=== PATIENT | female | born 1940 | race Caucasian/White ===

== ENCOUNTER → 2017-07-24 | Outpatient (CLI) | payer OTHER ==
--- NOTE | 2017-08-01 09:41 | CODING QUERY MEDICAL NECESSITY ---
SUPPORTING DIAGNOSIS NEEDED Christina ARAIZA, A supporting diagnosis is required for the test/procedure performed on this patient in order for us to be reimbursed by the patient's insurance. Please provide a supporting diagnosis for the following test/procedure listed below next to the test name along with your signature. *If there is no additional diagnosis for this patient that would support the following test/procedure please document that below next to the test/procedure. Test(s)/Procedure(s) that require a supporting diagnosis: * ([id number]) DXA BONE DENSITY, AXIAL DIAGNOSIS: DATE OF SERVICE: 07/24/17 Provider Signature: Date: Thank you Prashant Ramesh [facility] Information Management Once completed, please kindly fax back to [phone] For questions please call [phone]
== END | disposition home or self-care (01) ==
LOC: C.MAMM 13:48
PROVIDERS: ATTEND Physician Assistant
DX: M46.1 Sacroiliitis, not elsewhere classified (principal)

== ENCOUNTER → 2017-08-06 | Outpatient (CLI) | payer OTHER ==
[~2017-08-06] MED LIST: AGG PO; CALC-478 PO; CYAN100T PO; ESTR0.5T3 PO; FIBE1CHW8; FLAX100024 PO; FRS/40 PO; GLUCTAB7 PO; HYZ/50125 PO; LISI-461 PO; METO25TA56 PO; MULT-842; MULTCHW PO; NIAC1TAB59 PO; OMEG10007 PO; PLV75 PO; POTA-74 PO; RED1CAP5; VITA1TAB12 PO
[2017-08-06 15:37] LABS: ALBUMIN 3.3 gm/dl (3.4-5.0); ALT/SGPT 46 U/L (12-78); AST/SGOT 35 U/L (15-37); BLOOD UREA NITROGEN 25 mg/dl (7-18); CALCIUM 10.6 mg/dl (8.5-10.1); CARBON DIOXIDE 30 mmol/L (21-32); CREATININE 1.05 mg/dl (0.60-1.20); GLUCOSE 98 mg/dl (70-99); POTASSIUM 3.7 mmol/L (3.5-5.1); SODIUM 140 mmol/L (136-145)
[2017-08-06 15:39] LABS: ALKALINE PHOSPHATASE 132 U/L (45-117); PHOSPHORUS 2.5 mg/dl (2.5-4.9); TOTAL PROTEIN 7.5 gm/dl (6.4-8.2)
--- NOTE | 2017-08-12 07:10 | CODING QUERY MEDICAL NECESSITY ---
CQSUPPORTING DIAGNOSIS NEEDED A supporting diagnosis is required for the test/procedure performed on this patient in order for us to be reimbursed by the patient's insurance. Please provide a supporting diagnosis for the following test/procedure listed below next to the test name along with your signature. *If there is no additional diagnosis for this patient that would support the following test/procedure please document that below next to the test/procedure. Test(s)/Procedure(s) that require a supporting diagnosis: DOS 08/06/17 VITAMIN D TEST VITAMIN B12 TEST Provider Signature: Date: Thank you [facility] Information Management Once completed, please kindly fax back to [phone] For questions please call [phone]
== END | disposition home or self-care (01) ==
LOC: C.LAB1850 10:36
PROVIDERS: ATTEND Internal Medicine Endocrinology, Diabetes & Metabolism
DX: E34.9 Endocrine disorder, unspecified (principal); E55.9 Vitamin D deficiency, unspecified; E83.52 Hypercalcemia; E04.9 Nontoxic goiter, unspecified

== ENCOUNTER 2017-09-03 10:01 | Inpatient (IN) | payer OTHER ==
[~2017-09-03] VITALS: Ht 160 cm; Wt 97.8 kg
[2017-09-03] MEDS ORDERED: SODIUM CHLORIDE 0.9% 1000ML 1,000 ML IV SCH (10:20)
--- NOTE | 2017-09-03 10:25 | EMERGENCY ROOM VISIT NOTE ---
History Report prepared by Deya: Ekta Carlos Under the Supervision of: Dr. Jhon Chan M.D. First contact with patient: 10:06 Stated Complaint: FALL History of Present Illness The patient is a 76 year old female who presents to the Emergency Room with complaints of an episode of a fall occurring about an hour ago. The patient states she got out of bed and walked into the hallway when her "legs gave away" . An hour ago, she states her left hand was weak, and she felt like her left lip was drooping. Presently, the patient denies any weakness. Per daughter, the patient's speech seems slurred. She denies any shortness of breath, loss of consciousness or hitting her head. She reports "fullness" in her throat. The patient states she had a mini stroke this past July. She states her symptoms now are similar to when she had a mini stroke. 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 She states she had no residual deficits since the CVA. She denies any recent illness. The patient is on a blood thinner. Source of History: patient, family Onset: an hour ago Position: other (generalized) Quality: other (fall) Timing: other (episode) Associated Symptoms: + numbness, No LOC Review of Systems See HPI for pertinent positives & negatives. A total of 10 systems reviewed and were otherwise negative. Past Medical & Surgical Medical Problems: (1) CVA (cerebral vascular accident) (2) Mini stroke Old medical records were reviewed. Nurse's notes were reviewed and I agree with. Family History Patient reports no known family medical history. Social History Marital Status: Housing Status: lives with significant other Current/Historical Medications Scheduled Aspirin-Dipyridamole 25MG/200MG (Aggrenox 200MG/25MG), 1 CAP PO BID Xyjfxuk-Kgnoxorfe-Soth (Calcium & Magnesium + Zin 334-134-5 mg), 1 TAB PO DAILY Cyanocobalamin (Vitamin B-12), 100 MCG PO DAILY Estradiol (Estradiol), 0.5 MG PO QPM Fish Oil ([place]-3), 1 CAP PO DAILY Flaxseed (Linseed) (Flaxseed Oil), 1 CAP PO QPM Furosemide (Lasix), 40 MG PO DAILY Mugqbdqbuhp-Epyrmhllyvw-Wck C- (Glucosamine Chondroitin), 1 TAB PO DAILY Lisinopril (Zestril), 10 MG PO QPM Metoprolol Tartrate (Lopressor) (Lopressor), 12.5 MG PO AMPM Multiple Vitamins W/ Minerals (Centrum Silver), 1 TAB PO DAILY Niacin Ext Rel (Niaspan Ext Rel), 500 MG PO AMPM Potassium Chloride (Potassium Chloride Er), 10 MEQ PO DAILY Vitamin E (Vitamin E), 1 TAB PO DAILY Allergies Coded Allergies: Penicillins (Unverified Allergy, Severe, ANAPHYLAXIS, 09/03/17) Physical Exam Vital Signs Date Time Temp Pulse Resp B/P (MAP) Pulse Ox O2 Delivery O2 Flow Rate FiO2 09/03/17 12:23 67 21 167/81 94 Room Air 09/03/17 12:20 94 Room Air 09/03/17 11:39 64 21 164/90 96 Room Air 09/03/17 11:16 74 18 158/82 95 Room Air 09/03/17 11:00 74 20 183/82 94 Room Air 09/03/17 10:45 74 20 147/71 09/03/17 10:43 68 16 170/78 94 Room Air 09/03/17 10:33 72 20 176/92 94 Room Air 09/03/17 10:22 72 09/03/17 10:01 36.6 76 15 184/91 95 Room Air 09/03/17 10:01 36.6 76 15 184/91 95 Room Air 09/03/17 10:01 95 Room Air Physical Exam General: Non-ill appearing older female in no acute distress. Alert and oriented X 3, answers questions appropriately. HEENT: Normal cephalic atraumatic. Pupils are equal round and reactive to light. Extraocular movements are intact. Oropharynx is pink with moist mucous membranes. No swelling of the mouth lips or tongue. Neck: Supple with a midline trachea. No meningeal signs or stiffness, no JVD or bruits. No Stridor. Chest: Clear to auscultation bilaterally. No wheezes or rhonchi. No increased work of breathing. Heart: regular rate and rhythm. Abdomen: Soft nontender, nondistended without rebound guarding or rigidity. Extremities: No cyanosis clubbing or edema. No calf tenderness or assymetry Spine/Back. Non tender to palpation. No CVA tenderness Skin: Good turgor without rashes. Neurologic exam: Dysarthric speech, no word finding problems. Mild disconjugate gaze, no blurry vision. Cranial nerves two through 12 are intact. Motor and sensation are intact and symmetrical throughout. Medical Decision & Procedures ER Provider Diagnostic Interpretation: Radiology results as stated below per my review and radiologist interpretation: CT HEAD WITHOUT CONTRAST (CT) FINDINGS: There is a right lateral cerebellar infarct. There are left cerebellar lacunar infarcts. There are bilateral parietal infarcts, also likely old. There is additional infarct involving the left posterior parietal deep white matter. There is no midline shift. There is no acute hemorrhage. On image #9, there is a 9 mm right frontal extra-axial density. This likely is either artifactual, or secondary to a small meningioma There are patchy white matter hypodensities likely on a small vessel basis. There is no evidence of pathologic ventricular dilatation. There is no evidence of acute sinusitis IMPRESSION: 1. Cerebellar, and bilateral parietal infarcts. These are not felt to be acute. An MRI could be obtained in follow-up to exclude a subacute age, or to evaluate for an acute infarct which is not visible on this study 2. No evidence of acute hemorrhage 3. 9 mm extra-axial right frontal lesion versus artifact Electronically signed by: Hammad Isaac M.D. Laboratory Results 09/03/17 10:01 Red Blood Count 4.68, Mean Corpuscular Volume 100.9, Mean Corpuscular Hemoglobin 33.8, Mean Corpuscular Hemoglobin Concent 33.5, Mean Platelet Volume 9.8, Neutrophils (%) (Auto) 36.5, Lymphocytes (%) (Auto) 45.8, Monocytes (%) ( Auto) 15.5, Eosinophils (%) (Auto) 1.8, Basophils (%) (Auto) 0.4, Neutrophils # (Auto) 2.06, Lymphocytes # (Auto) 2.58, Monocytes # (Auto) 0.87, Eosinophils # ( Auto) 0.10, Basophils # (Auto) 0.02 09/03/17 10:01 Test 09/03/17 10:01 09/03/17 10:21 09/03/17 10:22 White Blood Count 5.63 K/uL (4.8-10.8) Red Blood Count 4.68 M/uL (4.2-5.4) Hemoglobin 15.8 g/dL (12.0-16.0) Hematocrit 47.2 % (37-47) Mean Corpuscular Volume 100.9 fL (80-100) Mean Corpuscular Hemoglobin 33.8 pg (25-34) Mean Corpuscular Hemoglobin Concent 33.5 g/dl (32-36) Platelet Count 277 K/uL (130-400) Mean Platelet Volume 9.8 fL (7.4-10.4) Neutrophils (%) (Auto) 36.5 % Lymphocytes (%) (Auto) 45.8 % Monocytes (%) (Auto) 15.5 % Eosinophils (%) (Auto) 1.8 % Basophils (%) (Auto) 0.4 % Neutrophils # (Auto) 2.06 K/uL (1.4-6.5) Lymphocytes # (Auto) 2.58 K/uL (1.2-3.4) Monocytes # (Auto) 0.87 K/uL (0.11-0.59) Eosinophils # (Auto) 0.10 K/uL (0-0.5) Basophils # (Auto) 0.02 K/uL (0-0.2) RDW Standard Deviation 48.8 fL (36.4-46.3) RDW Coefficient of Variation 13.3 % (11.5-14.5) Immature Granulocyte % (Auto) 0.0 % Immature Granulocyte # (Auto) 0.00 K/uL (0.00-0.02) Prothrombin Time 10.0 SECONDS (9.0-12.0) Prothromb Time International Ratio 1.0 (0.9-1.1) Activated Partial Thromboplast Time 26.8 SECONDS (21.0-31.0) Partial Thromboplastin Ratio 1.0 Anion Gap 7.0 mmol/L (3-11) Est Creatinine Clear Calc Drug Dose 59.2 ml/min Estimated GFR () 76.6 Estimated GFR (Non- 66.1 BUN/Creatinine Ratio 24.6 (10-20) Estimated Average Glucose 114 mg/dl Hemoglobin A1c 5.6 % (4.5-5.6) Calcium Level 10.4 mg/dl (8.5-10.1) Magnesium Level 2.2 mg/dl (1.8-2.4) Total Creatine Kinase 60 U/L (26-192) Creatine Kinase MB 1.3 ng/ml (0.5-3.6) Creatine Kinase MB Ratio 2.2 (0-3.0) Troponin I < 0.015 ng/ml (0-0.045) Bedside Prothrombin Time INR 1.1 (0.9-1.1) Bedside Glucose 88 mg/dl (70-90) Laboratory studies as stated above per my review. Medications Administered Medications (Trade) Dose Ordered Sig/Bryn Route Start Time Stop Time Status Last Admin Dose Admin Sodium Chloride 1,000 ml @ 50 mls/hr Q20H IV 09/03/17 10:20 09/03/17 15:30 DC 09/03/17 10:37 50 MLS/HR Clopidogrel Bisulfate (plAVix TAB) 300 mg NOW STAT PO 09/03/17 11:23 09/03/17 11:24 DC 09/03/17 11:40 300 MG Famotidine (Pepcid Tab) 20 mg NOW ONCE PO 09/03/17 11:30 09/03/17 11:31 DC 09/03/17 11:40 20 MG ECG Indication: weakness Rate (beats per minute): 69 Rhythm: normal sinus Findings: no acute ischemic change, no ectopy Comparison ECG Date: no prior available Change: EKG interpreted by me. ED Course 1008: Past medical records reviewed. The patient was evaluated in room B11B, and a complete history and physical examination were performed. 1020: Ordered Sodium Chloride 1000 ml @ 50 mls/hr IV 1030: Discussed the patient's case with Dr. LeonPotlatch Neurology. 1117: The patients symptoms are almost completely resolved. 1120: Dr. Rushing said not to give the patient tPA and to give her Plavix. He want us to admit the patient for further evaluation. 1123: Ordered Plavix Tab 300 mg PO. 1130: Ordered Pepcid Tab 20 mg PO. 1215: [facility]iscuss[facility] the patient's case [facility] The patient will be evaluated for further management. Medical Decision Differential diagnoses: CVA, TIA , intracranial hemorrhage, electrolyte or metabolic abnormality. This patient comes in as described above. She was placed initially in room B 11. She was feeling fine this morning afte but then got out of bed felt weak and fell. There was no injury. At that point, she felt weak in her left arm and leg and possibly the right as well. The weakness has since resolved. she still has some dysarthric speech which is new. She has no headache. she denies visual changes. When I have her read, she can do this without difficulty except for dysarthric speech. There are no word finding problems. Initially, I do question some possible disconjugate gaze in the right eye as well. She denies any visual symptoms with this however. Given the persistence of her symptoms, I did call a stroke alert to get the stroke team involved and expedite her care. CAT scan of her head does show several what appeared to older strokes. There is no acute hemorrhage. Her EKG does not suggest A. fib. She's had no significant electrolyte or metabolic abnormalities. She was loaded with Plavix as per Dr. Rivera's request and also given Prilosec and IV fluids. Her symptoms almost completely resolved while she was here she was feeling a lot better. I do think she needs to be admitted for further neurologic/stroke workup. I have consulted the hospitalist group to see her in the ER for these measures. Medication Reconcilliation Current Medication List: was personally reviewed by me Blood Pressure Screening Patient's blood pressure: Elevated blood pressure Blood pressure disposition: Referred to PCP (evaluated by hospitalist ) Consults Time Called: 1012 Consulting Physician: Dr. Reis Neurology Returned Call: 1030 Discussed the patient's case with Dr. Reis Neurology. Additional Consults: Time Called: 1058 Consulted Physician: Dr. Anoop JANG Returned Call: 1215 Additional Comments: Discussed the patient's case with Dr. Anoop JANG. The patient will be evaluated for further management. Impression Primary Impression: CVA (cerebral vascular accident) Additional Impression: Dysarthria Scribe Attestation The scribe's documentation has been prepared under my direction and personally reviewed by me in its entirety. I confirm that the note above accurately reflects all work, treatment, procedures, and medical decision making performed by me. Departure Information Dispostion Being Evaluated By Hospitalist Referrals Asif Vasquez PA-C (PCP) Stroke History Time Last Known Well 0900 Stroke t-PA Criteria Reviewed Does NOT meet criteria for t-PA Reason t-PA Not Given Treatment not indicated Problem Qualifiers
[2017-09-03 10:32] LABS: BASO % 0.4 %; BASO ABS # 0.02 K/uL (0-0.2); EOS % 1.8 %; HEMATOCRIT 47.2 % (37-47); HEMOGLOBIN 15.8 g/dL (12.0-16.0); LYMPH % 45.8 %; LYMPH ABS # 2.58 K/uL (1.2-3.4); MEAN CELL VOLUME 100.9 fL (80-100); MEAN CORPUSCULAR HEMOGLOBIN 33.8 pg (25-34); MEAN CORPUSCULAR HGB CONC 33.5 g/dl (32-36); MEAN PLATELET VOLUME 9.8 fL (7.4-10.4); MONO % 15.5 %; MONO ABS # 0.87 K/uL (0.11-0.59); NEUT % 36.5 %; NEUT ABS # 2.06 K/uL (1.4-6.5); PLATELET COUNT 277 K/uL (130-400); RED CELL DISTRIBUTION WIDTH CV 13.3 % (11.5-14.5); RED CELL DISTRIBUTION WIDTH SD 48.8 fL (36.4-46.3); WHITE BLOOD COUNT 5.63 K/uL (4.8-10.8)
--- NOTE | 2017-09-03 10:38 | DIAGNOSTIC IMAGING REPORT ---
CT HEAD WITHOUT CONTRAST (CT) CLINICAL HISTORY: Stroke COMPARISON STUDY: No previous studies for comparison. TECHNIQUE: Axial CT of the brain is performed from the vertex to the skull base. IV contrast was not administered for this examination. A dose lowering technique was utilized adhering to the principles of ALARA. CT DOSE: 709.48 mGy.cm FINDINGS: There is a right lateral cerebellar infarct. There are left cerebellar lacunar infarcts. There are bilateral parietal infarcts, also likely old. There is additional infarct involving the left posterior parietal deep white matter. There is no midline shift. There is no acute hemorrhage. On image #9, there is a 9 mm right frontal extra-axial density. This likely is either artifactual, or secondary to a small meningioma There are patchy white matter hypodensities likely on a small vessel basis. There is no evidence of pathologic ventricular dilatation. There is no evidence of acute sinusitis IMPRESSION: 1. Cerebellar, and bilateral parietal infarcts. These are not felt to be acute. An MRI could be obtained in follow-up to exclude a subacute age, or to evaluate for an acute infarct which is not visible on this study 2. No evidence of acute hemorrhage 3. 9 mm extra-axial right frontal lesion versus artifact Electronically signed by: Hammad Isaac M.D. 09/03/2017 10:36 AM Dictated Date/Time: 09/03/2017 10:30 AM
[2017-09-03 10:40] LABS: PTT PATIENT 26.8 SECONDS (21.0-31.0)
[2017-09-03 10:49] LABS: BLOOD UREA NITROGEN 21 mg/dl (7-18); CALCIUM 10.4 mg/dl (8.5-10.1); CARBON DIOXIDE 24 mmol/L (21-32); CREATININE 0.85 mg/dl (0.60-1.20); GLUCOSE 101 mg/dl (70-99); POTASSIUM 3.7 mmol/L (3.5-5.1); SODIUM 138 mmol/L (136-145)
[2017-09-03 10:53] LABS: CKMB 1.3 ng/ml (0.5-3.6)
[2017-09-03] MEDS ORDERED: CLOPIDOGREL BISULFATE 300 MG TAB PO STA (11:23)
[2017-09-03] MEDS ORDERED: FAMOTIDINE 20 MG TAB PO ONE (11:30)
[2017-09-03] MEDS ORDERED: FLAX100024 PO (11:53)
[2017-09-03] MEDS ORDERED: FRS/40 PO (11:53)
[2017-09-03] MEDS ORDERED: ESTR0.5T3 PO (11:53)
[2017-09-03] MEDS ORDERED: MULTCHW PO (11:53)
[2017-09-03] MEDS ORDERED: VITA1TAB12 PO (11:53)
[2017-09-03] MEDS ORDERED: GLUCTAB7 PO (11:53)
[2017-09-03] MEDS ORDERED: LISI-461 PO (11:53)
[2017-09-03] MEDS ORDERED: POTA-74 PO (11:53)
[2017-09-03] MEDS ORDERED: CALC-478 PO (11:53)
[2017-09-03] MEDS ORDERED: NIAC1TAB59 PO (11:53)
[2017-09-03] MEDS ORDERED: AGG PO (11:53)
[2017-09-03] MEDS ORDERED: METO25TA56 PO (11:53)
[2017-09-03] MEDS ORDERED: OMEG10007 PO (11:53)
[2017-09-03] MEDS ORDERED: CYAN100T PO (11:53)
[2017-09-03 12:20] VITALS: O2SAT 94; Ht 160 cm; Wt 97.8 kg
[2017-09-03] MEDS ORDERED: PHARMACIST DISCHARGE MED REC CONSULT PRN (13:00)
[2017-09-03] MEDS ORDERED: ACETAMINOPHEN 325 MG TAB PO PRN (13:00)
[2017-09-03] MEDS ORDERED: ONDANSETRON INJ 2 MG/ML 2 ML VIAL IV PRN (13:00)
[2017-09-03] MEDS ORDERED: MAGNESIUM HYDROXIDE SUSP 30 ML UDC PO PRN (13:00)
--- NOTE | 2017-09-03 13:10 | History and Physical ---
History & Physical Date & Time of Service: Sep 03, 2017 at 12:57 Chief Complaint: Fall/Weakness Primary Care Physician: Asif Vasquez PA-C History of Present Illness Source: patient, family 76 y/o F c/o stroke sx. Pt states that she fell around 9am after feeling like her legs were too weak to hold her. She felt like both legs were unable to bear weight. She was able to pull herself up along the banister and get to the bathroom where she had a large bowel movement. She was unable to use her L hand well to pick things up. She was having a hard time speaking due to inability to move her mouth well. She had no confusion during this time. She did not lose consciousness or hit her head with her fall. Prior to this, she had been having a normal night. Yesterday was a busy day for her and she had no issues going about her tasks. In the ED, pt was evaluated by tele-med with Dr. Montoya who recommended for plavix, MRA/MRI, and inpt management. She was not deemed a candidate for tpa given resolution of sx. At present, pt feels that she is still having some issues with her speech and family states that the L sided facial droop is not her baseline. Pt has had multiple strokes and TIAs in the past. Her first was 9 years ago and she has been on aggrenox since that time. She has not missed any doses of this medication recently. She saw a neurologist at that time, but is not sure who she saw other than to say it was in [place] somewhere. She does not follow with neurology. Pt had a similar episode 06/2017. This also resolved somewhat quickly. Pt states that she has also had a substantial cardiac work-up with a cardiology out of [facility]. She does not know his name. She states that she was told her heart was fine. She did have an ECHO as part of this work-up. Pt denies fever, SOB, chest pain, abd pain, n/v/c/d, LE pain or swelling. Past Medical/Surgical History Medical Problems: (1) CVA (cerebral vascular accident) Status: Resolved (2) Mini stroke Status: Resolved HTN PRN lasix use Hyperlipidemia Family History Family history was reviewed; no changes noted. Father with [place], CVA Social History Smoking Status: Never Smoker Alcohol Use: none Drug Use: none Marital Status: Allergies Coded Allergies: Penicillins (Unverified Allergy, Severe, ANAPHYLAXIS, 09/03/17) Home Medications Scheduled Aspirin-Dipyridamole 25MG/200MG (Aggrenox 200MG/25MG), 1 CAP PO BID Apklqin-Gzlrqidgz-Lkat (Calcium & Magnesium + Zin 334-134-5 mg), 1 TAB PO DAILY Cyanocobalamin (Vitamin B-12), 100 MCG PO DAILY Estradiol (Estradiol), 0.5 MG PO QPM Fish Oil ([place]-3), 1 CAP PO DAILY Flaxseed (Linseed) (Flaxseed Oil), 1 CAP PO QPM Furosemide (Lasix), 40 MG PO DAILY Dinmzaaptkw-Xwduijoynmt-Uub C- (Glucosamine Chondroitin), 1 TAB PO DAILY Lisinopril (Zestril), 10 MG PO QPM Metoprolol Tartrate (Lopressor) (Lopressor), 12.5 MG PO AMPM Multiple Vitamins W/ Minerals (Centrum Silver), 1 TAB PO DAILY Niacin Ext Rel (Niaspan Ext Rel), 500 MG PO AMPM Potassium Chloride (Potassium Chloride Er), 10 MEQ PO DAILY Vitamin E (Vitamin E), 1 TAB PO DAILY Review of Systems Pertinent positives and negatives reviewed in HPI--all others negative Physical Exam Vital Signs Date Time Temp Pulse Resp B/P (MAP) Pulse Ox O2 Delivery O2 Flow Rate FiO2 09/03/17 12:23 67 21 167/81 94 Room Air 09/03/17 11:39 64 21 164/90 96 Room Air 09/03/17 11:16 74 18 158/82 95 Room Air 09/03/17 11:00 74 20 183/82 94 Room Air 09/03/17 10:45 74 20 147/71 09/03/17 10:43 68 16 170/78 94 Room Air 09/03/17 10:33 72 20 176/92 94 Room Air 09/03/17 10:22 72 09/03/17 10:01 36.6 76 15 184/91 95 Room Air 09/03/17 10:01 36.6 76 15 184/91 95 Room Air 09/03/17 10:01 95 Room Air General Appearance: WD/WN, no apparent distress Head: normocephalic, atraumatic Eyes: normal inspection, EOMI, sclerae normal Respiratory/Chest: normal breath sounds, no respiratory distress Cardiovascular: regular rate, rhythm, no edema Abdomen/GI: non tender, soft Extremities/Musculoskelatal: no calf tenderness, no pedal edema Neurologic/Psych: alert, normal mood/affect, oriented x 3, + facial droop (L sided), + pertinent finding (5/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, L LE 4/5 on strength against resistance from the hip, 5/5 in all other planes with R LE 5/5, speech is somewhat slow and pt must take care to pronounce words) Skin: normal color, warm/dry Diagnostics Laboratory Results Results Past 24 Hours Test 09/03/17 10:01 09/03/17 10:21 Range/Units White Blood Count 5.63 4.8-10.8 K/uL Red Blood Count 4.68 4.2-5.4 M/uL Hemoglobin 15.8 12.0-16.0 g/dL Hematocrit 47.2 37-47 % Mean Corpuscular Volume 100.9 80-100 fL Mean Corpuscular Hemoglobin 33.8 25-34 pg Mean Corpuscular Hemoglobin Concent 33.5 32-36 g/dl Platelet Count 277 130-400 K/uL Mean Platelet Volume 9.8 7.4-10.4 fL Neutrophils (%) (Auto) 36.5 % Lymphocytes (%) (Auto) 45.8 % Monocytes (%) (Auto) 15.5 % Eosinophils (%) (Auto) 1.8 % Basophils (%) (Auto) 0.4 % Neutrophils # (Auto) 2.06 1.4-6.5 K/uL Lymphocytes # (Auto) 2.58 1.2-3.4 K/uL Monocytes # (Auto) 0.87 0.11-0.59 K/uL Eosinophils # (Auto) 0.10 0-0.5 K/uL Basophils # (Auto) 0.02 0-0.2 K/uL RDW Standard Deviation 48.8 36.4-46.3 fL RDW Coefficient of Variation 13.3 11.5-14.5 % Immature Granulocyte % (Auto) 0.0 % Immature Granulocyte # (Auto) 0.00 0.00-0.02 K/uL Prothrombin Time 10.0 9.0-12.0 SECONDS Prothromb Time International Ratio 1.0 0.9-1.1 Activated Partial Thromboplast Time 26.8 21.0-31.0 SECONDS Partial Thromboplastin Ratio 1.0 Sodium Level 138 136-145 mmol/L Potassium Level 3.7 3.5-5.1 mmol/L Chloride Level 107 98-107 mmol/L Carbon Dioxide Level 24 21-32 mmol/L Anion Gap 7.0 3-11 mmol/L Blood Urea Nitrogen 21 7-18 mg/dl Creatinine 0.85 0.60-1.20 mg/dl Est Creatinine Clear Calc Drug Dose 59.2 ml/min Estimated GFR () 76.6 Estimated GFR (Non- 66.1 BUN/Creatinine Ratio 24.6 10-20 Random Glucose 101 70-99 mg/dl Calcium Level 10.4 8.5-10.1 mg/dl Magnesium Level 2.2 1.8-2.4 mg/dl Total Creatine Kinase 60 26-192 U/L Creatine Kinase MB 1.3 0.5-3.6 ng/ml Creatine Kinase MB Ratio 2.2 0-3.0 Troponin I < 0.015 0-0.045 ng/ml Bedside Prothrombin Time INR 1.1 0.9-1.[address] head: 1. Cerebellar, and bilateral parietal infarcts. These are not felt to be acute. An MRI could be obtained in follow-up to exclude a subacute age, or to evaluate for an acute infarct which is not visible on this study 2. No evidence of acute hemorrhage 3. 9 mm extra-axial right frontal lesion versus artifact Impression Assessment and Plan 76 y/o F who was admitted on 09/03 for stroke like sx Likely CVA: CT head noted for old infarct MRI/MRA pending Not a tpa candidate Telemed neuro recs for plavix Pt with long standing hx of aggrenox use Neuro c/s pending Recent ECHO as part of cardiac work-up, will hold on repeat until these images are available CBC, PRP WNL Lipids, A1c pending PT/OT/speech HTN: continue home meds PRN lasix use: continue as at home Records requested regarding recent cardiology work-up and past imaging for CVA Other: Full code, pt does not want prolonged mechanical life support or feeding tubes. Family is present and agrees with this SCDs for DVT proph ADAT after bedside swallow eval Level of Care Telemetry Resuscitation Status FULL RESUSCITATION VTE Prophylaxis VTE Risk Assessment Done? Y/N: Yes Risk Level: Low
[2017-09-03 13:25] LABS: HEMOGLOBIN A1C 5.6 % (4.5-5.6)
[2017-09-03 14:00] VITALS: BP 166/99; PULSE 64; TEMP 37.2; O2SAT 95
[2017-09-03] MEDS ORDERED: POTASSIUM CHLORIDE 10 MEQ TABCR PO PRN (15:00)
[2017-09-03] MEDS ORDERED: FUROSEMIDE 40 MG TAB PO PRN (15:00)
[2017-09-03] MEDS ORDERED: NURSING VERBAL MED ORDER ONE (15:30)
[2017-09-03 15:33] VITALS: BP 163/84; PULSE 71; TEMP 37.1; O2SAT 93
[2017-09-03 16:00] VITALS: BP 163/84; PULSE 71; TEMP 37.1; O2SAT 93
[2017-09-03] MEDS ORDERED: GADAVIST IV PRN (20:15)
--- NOTE | 2017-09-03 20:21 | DIAGNOSTIC IMAGING REPORT ---
Brain MRI WITH AND WITHOUT CONTRAST HISTORY: Weakness. Stroke TECHNIQUE: Multiplanar multisequence MRI of the brain was performed both before and after the intravenous administration of contrast. COMPARISON STUDY: Head CT 09/03/2017. FINDINGS: There are greater than 5 small foci of restricted diffusion to within the right posterior frontal lobe and right parietal lobe consistent with acute embolic infarcts. The midline structures are intact. A 2.5 cm retention cyst within the floor of the right maxillary sinus. The orbits are unremarkable. The mastoid air cells are clear. Multiple old bilateral parietal, occipital, and cerebellar infarcts. Mild atrophic changes within the brain. Increased T2 signal associated with the old bilateral infarcts consistent with gliosis. There is minimal edema associated with the acute right-sided small infarcts. Additional areas of T2 hyperintensity within the periventricular white matter likely represent mild microvascular ischemic change. There is no mass, hematoma, midline shift. No abnormal enhancement. IMPRESSION: 1. A few small acute infarcts seen within the right posterior frontal lobe and right parietal lobe. 2. Multiple old additional infarcts as described above. 3. Mild atrophy and mild microvascular ischemic changes. Electronically signed by: Justice Caicedo M.D. 09/03/2017 8:20 PM Dictated Date/Time: 09/03/2017 8:13 PM
[2017-09-03] MEDS: NIASPAN 500 MG TABCR PO SCH (20:23)
[2017-09-03] MEDS: ESTRADIOL 1 MG TAB PO SCH (20:23)
[2017-09-03] MEDS: LISINOPRIL 10 MG TAB PO SCH (20:24)
--- NOTE | 2017-09-03 20:24 | DIAGNOSTIC IMAGING REPORT ---
Brain MRA HISTORY: Weakness. Stroke - Attention to [place] TECHNIQUE: 3-D tgwn-lh-yotvdf MRA of the brain was performed without contrast. COMPARISON STUDY: None. FINDINGS: Visualized intracranial internal carotid arteries, distal vertebral arteries, and basilar artery are widely patent. There is no significant stenosis, occlusion, or aneurysm seen within the bilateral ACAs, MCAs, or back winder. IMPRESSION: No significant stenosis, occlusion, or aneurysm within the [place]. Electronically signed by: Justice Caicedo M.D. 09/03/2017 8:23 PM Dictated Date/Time: 09/03/2017 8:20 PM
[2017-09-03] MEDS: METOPROLOL TARTRATE 25 MG TAB PO SCH (20:25)
[2017-09-03 20:29] VITALS: BP 167/97; PULSE 88; TEMP 37.5; O2SAT 95
--- NOTE | 2017-09-03 20:36 | DIAGNOSTIC IMAGING REPORT ---
NECK MRA HISTORY: Stroke TECHNIQUE: [id number] and gadolinium-enhanced MRA of the neck was performed both before and after the intravenous administration of contrast. All measurements were calculated based on NASCET criteria. COMPARISON STUDY: None. FINDINGS: The aortic arch and proximal great vessels are widely patent. The proximal right common carotid artery is partially obscured by venous contamination. Otherwise, there is no significant stenosis or occlusion identified within the bilateral common carotid or internal carotid arteries. 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 The right vertebral artery is widely patent. No evidence for carotid or vertebral artery dissection. IMPRESSION: 1. No significant stenosis, occlusion, or dissection identified within the carotid or right vertebral arteries. 2. 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 The remaining portions of the left vertebral artery are patent. Electronically signed by: Justice Caiceod M.D. 09/03/2017 8:34 PM Dictated Date/Time: 09/03/2017 8:23 PM
[2017-09-03] MEDS ORDERED: NON-FORMULARY MEDICATION (Flaxseed (Linseed) (Flaxseed Oil) 1 CAP) PO SCH (21:00)
[2017-09-03 23:06] VITALS: BP 165/95; PULSE 80; TEMP 37.4; O2SAT 96
[2017-09-04] VITALS (10 sets, daily range): BP systolic 146–170; BP diastolic 74–97; PULSE 58–73; TEMP 36.6–37.3; O2SAT 92–96
[2017-09-04 05:53] LABS: BASO % 0.4 %; BASO ABS # 0.02 K/uL (0-0.2); EOS % 2.2 %; EOS ABS # 0.12 K/uL (0-0.5); HEMATOCRIT 44.5 % (37-47); HEMOGLOBIN 14.8 g/dL (12.0-16.0); LYMPH % 37.2 %; LYMPH ABS # 2.07 K/uL (1.2-3.4); MEAN CELL VOLUME 100.9 fL (80-100); MEAN CORPUSCULAR HEMOGLOBIN 33.6 pg (25-34); MEAN CORPUSCULAR HGB CONC 33.3 g/dl (32-36); MEAN PLATELET VOLUME 9.1 fL (7.4-10.4); MONO % 18.5 %; MONO ABS # 1.03 K/uL (0.11-0.59); NEUT % 41.7 %; NEUT ABS # 2.33 K/uL (1.4-6.5); PLATELET COUNT 240 K/uL (130-400); RED CELL DISTRIBUTION WIDTH CV 13.2 % (11.5-14.5); RED CELL DISTRIBUTION WIDTH SD 48.4 fL (36.4-46.3); WHITE BLOOD COUNT 5.57 K/uL (4.8-10.8)
[2017-09-04 06:31] LABS: CALCIUM 9.4 mg/dl (8.5-10.1); CREATININE 0.94 mg/dl (0.60-1.20); POTASSIUM 4.2 mmol/L (3.5-5.1)
[2017-09-04] MEDS: METOPROLOL TARTRATE 25 MG TAB PO SCH ×2 (07:44→19:34)
[2017-09-04] MEDS: TOCOPHERYL, DL-ALPHA 100 INTERUNIT CAP PO SCH (07:45)
[2017-09-04] MEDS: NIASPAN 500 MG TABCR PO SCH ×2 (07:46→19:35)
[2017-09-04] MEDS: CLOPIDOGREL BISULFATE 75 MG TAB PO SCH (07:46)
[2017-09-04] MEDS: CYANOCOBALAMIN 100 MCG TAB (VIT B-12) PO SCH (07:46)
[2017-09-04] MEDS: OMEGA-3 (PURIFIED FISH OIL) 1 GM CAP PO SCH (07:46)
[2017-09-04] MEDS: CEROVITE ADV FORMULA TAB PO SCH (07:46)
[2017-09-04] MEDS ORDERED: NON-FORMULARY MEDICATION (Glucosamine-Chondroitin-Vit C- (Glucosamine Chondroitin) 1 TAB) PO SCH (09:00)
--- NOTE | 2017-09-04 09:34 | Neurology Consultation ---
Neurology Consultation Date of Consultation: Sep 04, 2017. Attending Physician: Livier Davalos DO Primary Care Physician: Asif Vasquez PA-C Reason for Consultation: Stroke History of Present Illness Source: patient, hospital records The patient is a 76-year-old female with a chief complaint of weakness. The patient had fallen at home about one hour prior to arrival. She was walking from her bed to the bathroom at that time area she indicates that her legs give out from under her. She also complained of associated weakness of the left hand and left side of the mouth. Mild dysarthria and disconjugate gaze were observed in the emergency department. Weakness of the hand or face was not observed. The patient indicates that all of her symptoms have resolved. She currently denies headache, diplopia, dysarthria, vertigo, or weakness of the limbs. Past medical history notable for a stroke occurring about 9 years ago which the patient recalls affected her balance and motor control of the right arm and leg. The patient also indicates that she was evaluated at [facility] this past June for either a stroke or TIA affecting motor control of her left arm. She denies any residual deficits from either of these cerebrovascular events. After her first stroke, 9 years ago, the patient was placed on Aggrenox. She has remained on this medication up until her recent presentation. Past medical history also notable for hypertension and hyperlipidemia. She is a nonsmoker. She denies a history of DVT or pulmonary embolism. Her mother had a stroke as well as a myocardial infarction. A CT of the head completed in the emergency department revealed an old stroke in the right cerebellum as well as multiple old bilateral parietal infarcts. An electrocardiogram revealed a sinus rhythm, 69 bpm. A tele-stroke consultation was obtained with [facility]. TPA was not administered. Aggrenox was discontinued in favor of Plavix. An MRI of the brain including MR angiography of the head and neck of been completed as well. I reviewed the images as well as the radiologist's interpretation of these tests. There are a few small embolic appearing infarcts within the right parietal and frontal lobe. Multiple old bilateral infarcts again observed including a relatively large chronic infarct within the right cerebellar hemisphere. An MRA of the head is unremarkable. An MRA of the neck revealed a focal high-grade stenosis at the origin of the left vertebral artery. No significant carotid or internal carotid disease. Past Medical/Surgical History Medical Problems: (1) CVA (cerebral vascular accident) Status: Acute (2) Dysarthria Status: Acute Family History Patient's mother had a stroke and myocardial infarction. No known family history of tendency for blood clots or thrombophilia. Social History Alcohol Use: none Drug Use: none Marital Status: Housing Status: lives with significant other Allergies Coded Allergies: Penicillins (Unverified Allergy, Severe, ANAPHYLAXIS, 09/03/17) Current Inpatient Medications Current Inpatient Medications Medications (Trade) Dose Ordered Sig/Bryn Route Start Time Stop Time Status Last Admin Dose Admin Clopidogrel Bisulfate (plAVix TAB) 75 mg QAM PO 09/04/17 09:00 10/04/17 08:59 09/04/17 07:46 75 MG Miscellaneous Information (Pharmacist Discharge Med Rec Consult) 1 ea UD PRN N/A 09/03/17 13:00 10/03/17 12:59 Acetaminophen (Tylenol Tab) 650 mg Q4H PRN PO 09/03/17 13:00 10/03/17 12:59 Magnesium Hydroxide (Milk Of Magnesia Susp) 30 ml Q12H PRN PO 09/03/17 13:00 10/03/17 12:59 Ondansetron HCl (Zofran Inj) 4 mg Q6H PRN IV 09/03/17 13:00 10/03/17 12:59 Cyanocobalamin (Vitamin B-12 Tab) 100 mcg DAILY PO 09/04/17 09:00 10/04/17 08:59 09/04/17 07:46 100 MCG Fish Oil (Leonard-3 (Purified Fish Oil) Cap) 1 gm DAILY PO 09/04/17 09:00 10/04/17 08:59 09/04/17 07:46 1 GM Furosemide (Lasix Tab) 40 mg DAILY PRN PO 09/03/17 15:00 10/03/17 14:59 Lisinopril (Zestril Tab) 10 mg QPM PO 09/03/17 21:00 10/03/17 20:59 09/03/17 20:24 10 MG Metoprolol Tartrate (Lopressor Tab) 12.5 mg BID PO 09/03/17 21:00 10/03/17 20:59 09/04/17 07:44 12.5 MG Niacin (Niaspan Extended Rel Tab) 500 mg BID PO 09/03/17 21:00 10/03/17 20:59 09/04/17 07:46 500 MG Estradiol (Estrace Tab) 0.5 mg QPM PO 09/03/17 21:00 10/03/17 20:59 09/03/17 20:23 0.5 MG Multivitamins/ Minerals (Multivitamin W/ Minerals Tab) 1 tab QAM PO 09/04/17 09:00 10/04/17 08:59 09/04/17 07:46 1 TAB Potassium Chloride (Klor-Con M10) 10 meq DAILY PRN PO 09/03/17 15:00 10/03/17 14:59 lt-Ixjas-Qzjytmcjpk Acetate (Vitamin E Cap) 100 interunit DAILY PO 09/04/17 09:00 10/04/17 08:59 09/04/17 07:45 100 INTERUNIT Gadobutrol (Gadavist) 9 mmol UD PRN IV 09/03/17 20:15 09/07/17 20:14 Review of Systems Constitutional: No fever or chills Eyes: No vision loss or diplopia ENT: No vertigo or hearing loss Cardiovascular: No chest pain or palpitations Respiratory: No coughing wheezing or shortness of breath Neurological: As per history of present illness Psychiatric: No depression or anxiety Skin: No rash A full 10 point review of systems was obtained from this patient with pertinent positives and negatives described in history of present illness and otherwise listed above. All remaining systems were reviewed and are negative. Physical Exam Vital Signs (Past 24 Hrs): Date Time Temp Pulse Resp B/P (MAP) Pulse Ox O2 Delivery O2 Flow Rate FiO2 09/04/17 08:00 94 Room Air 09/04/17 08:00 37.3 70 20 153/87 (109) 94 Room Air 09/04/17 04:00 96 Room Air 09/04/17 03:54 36.9 67 20 164/83 (110) 92 Room Air 09/04/17 00:04 37.3 72 18 167/81 (109) 92 Room Air 09/04/17 00:00 96 Room Air 09/03/17 23:06 37.4 80 20 165/95 (118) 96 Room Air 09/03/17 20:29 37.5 88 20 167/97 (120) 95 Room Air 09/03/17 20:29 37.5 88 20 167/97 (120) 95 Room Air 09/03/17 20:00 Room Air 09/03/17 16:00 Room Air 09/03/17 15:33 37.1 71 20 163/84 (110) 93 Room Air 09/03/17 15:33 37.1 71 20 163/84 (110) 93 Room Air 09/03/17 14:00 37.2 64 20 166/99 (121) 95 09/03/17 13:35 70 18 176/102 96 Room Air 09/03/17 13:09 76 09/03/17 12:23 67 21 167/81 94 Room Air 09/03/17 12:20 94 Room Air 09/03/17 11:39 64 21 164/90 96 Room Air 09/03/17 11:16 74 18 158/82 95 Room Air 09/03/17 11:00 74 20 183/82 94 Room Air 09/03/17 10:45 74 20 147/71 09/03/17 10:43 68 16 170/78 94 Room Air 09/03/17 10:33 72 20 176/92 94 Room Air 09/03/17 10:22 72 09/03/17 10:01 36.6 76 15 184/91 95 Room Air 09/03/17 10:01 36.6 76 15 184/91 95 Room Air 09/03/17 10:01 95 Room Air The patient is well-developed, well-nourished elderly female. She is alert and fully oriented. Recent and remote memory intact. Attention and concentration normal. Patient exhibits a normal spontaneous speech pattern as well as an age- appropriate fund of knowledge. Visual gilbert full to confrontation. Visual acuity normal. Pupils equal round reactive to light and accommodation. Eye movements normal. No nystagmus. Facial sensation intact. There is no facial droop or facial weakness. Hearing intact to finger rub bilaterally. Palate elevates to midline. Shoulder shrug strength intact bilaterally. Tongue protrudes to midline. Sensation intact to light touch, temperature, vibration, and proprioception for all 4 limbs. Deep tendon reflexes are intact and symmetrical for the arms and legs. Plantar responses downgoing bilaterally. There is no dysdiadochokinesia or dysmetria with finger to nose or heel to barcenas bilaterally. Ophthalmoscopic examination reveals normal-appearing optic disks and posterior segments. No papilledema or hemorrhages. Carotid pulses normal bilaterally, no bruits to auscultation. Gait and station normal. Muscle strength and tone normal for the arms and legs bilaterally. No atrophy. No abnormal movements observed. Laboratory Results Past 24 Hours: 09/04/17 05:42 Red Blood Count 4.41, Mean Corpuscular Volume 100.9, Mean Corpuscular Hemoglobin 33.6, Mean Corpuscular Hemoglobin Concent 33.3, Mean Platelet Volume 9.1, Neutrophils (%) (Auto) 41.7, Lymphocytes (%) (Auto) 37.2, Monocytes (%) ( Auto) 18.5, Eosinophils (%) (Auto) 2.2, Basophils (%) (Auto) 0.4, Neutrophils # (Auto) 2.33, Lymphocytes # (Auto) 2.07, Monocytes # (Auto) 1.03, Eosinophils # ( Auto) 0.12, Basophils # (Auto) 0.02 09/04/17 05:42 Test 09/03/17 10:01 09/03/17 10:21 09/03/17 10:22 09/04/17 05:42 Prothrombin Time 10.0 SECONDS (9.0-12.0) Prothromb Time International Ratio 1.0 (0.9-1.1) Activated Partial Thromboplast Time 26.8 SECONDS (21.0-31.0) Partial Thromboplastin Ratio 1.0 Estimated Average Glucose 114 mg/dl Hemoglobin A1c 5.6 % (4.5-5.6) Magnesium Level 2.2 mg/dl (1.8-2.4) Total Creatine Kinase 60 U/L (26-192) Creatine Kinase MB 1.3 ng/ml (0.5-3.6) Creatine Kinase MB Ratio 2.2 (0-3.0) Troponin I < 0.015 ng/ml (0-0.045) Bedside Prothrombin Time INR 1.1 (0.9-1.1) Bedside Glucose 88 mg/dl (70-90) White Blood Count 5.57 K/uL (4.8-10.8) Red Blood Count 4.41 M/uL (4.2-5.4) Hemoglobin 14.8 g/dL (12.0-16.0) Hematocrit 44.5 % (37-47) Mean Corpuscular Volume 100.9 fL (80-100) Mean Corpuscular Hemoglobin 33.6 pg (25-34) Mean Corpuscular Hemoglobin Concent 33.3 g/dl (32-36) Platelet Count 240 K/uL (130-400) Mean Platelet Volume 9.1 fL (7.4-10.4) Neutrophils (%) (Auto) 41.7 % Lymphocytes (%) (Auto) 37.2 % Monocytes (%) (Auto) 18.5 % Eosinophils (%) (Auto) 2.2 % Basophils (%) (Auto) 0.4 % Neutrophils # (Auto) 2.33 K/uL (1.4-6.5) Lymphocytes # (Auto) 2.07 K/uL (1.2-3.4) Monocytes # (Auto) 1.03 K/uL (0.11-0.59) Eosinophils # (Auto) 0.12 K/uL (0-0.5) Basophils # (Auto) 0.02 K/uL (0-0.2) RDW Standard Deviation 48.4 fL (36.4-46.3) RDW Coefficient of Variation 13.2 % (11.5-14.5) Immature Granulocyte % (Auto) 0.0 % Immature Granulocyte # (Auto) 0.00 K/uL (0.00-0.02) Anion Gap 6.0 mmol/L (3-11) Est Creatinine Clear Calc Drug Dose 53.5 ml/min Estimated GFR () 67.8 Estimated GFR (Non- 58.5 BUN/Creatinine Ratio 20.8 (10-20) Calcium Level 9.4 mg/dl (8.5-10.1) Triglycerides Level 75 mg/dl (0-150) Cholesterol Level 212 mg/dl (0-200) HDL Cholesterol 60 mg/dl LDL Cholesterol, Calculated 137 mg/dl VLDL Cholesterol, Calculated 15 mg/dl Cholesterol/HDL Ratio 3.5 Impression Acute embolic appearing infarcts to the right frontal and right parietal lobe. Multiple old chronic infarcts which may also have been embolic. No significant deficits on neurological examination at this time. No signs of hemiparesis or sensory motor neglect to the left side. No evidence of ataxia related to the chronic medium to large sized right cerebellar stroke. Cardiovascular risk factors for this patient include hypertension and hyperlipidemia. No known history of atrial fibrillation or significant cardiac disease, however. Plan Agree with Plavix 75 mg per day. Consider discontinuation of estradiol which may increase the risk of cardiovascular or thrombotic events. Consider starting a statin to address her elevated LDL in spite of adequate HDL. I would recommend obtaining a transthoracic echocardiogram with bubble study to exclude PFO. Results of her echocardiogram from [place], in June, are not available, and it is not known if a bubble study was performed. Consider obtaining prolonged outpatient cardiac Holter monitoring to exclude occult atrial fibrillation. Evaluation with PT/OT although she will probably not require inpatient rehabilitation services. Please contact me if I may be of further assistance.
[2017-09-04] MEDS ORDERED: PERFLUTREN LIPID MICROSPHERE (DEFINITY) IV ONE (15:01)
--- NOTE | 2017-09-04 15:54 | Hospitalist Progress Note ---
Hospitalist Progress Note Date of Service Sep 04, 2017. (Yamilet Womack PA-C) Subjective Pt evaluation today including: conversation w/ patient, conversation w/ family , physical exam, chart review, lab review, review of studies, review of inpatient medication list Patient seen and evaluated. No acute events overnight. Neurological deficits have resolved. Daughter at bedside confirms patient appears her normal self. Telemetry reviewed with no arrhythmias. MRI supports multiple small infarcts in different lobes. No document H/O arrhythmias/A Fib/A Flutter. Patient states she has rare episodes of what she would think are palpitations but they would only last seconds and never bothersome. She had recent cardiac work-up and reports she was not told of any issues. Discussed statin therapy and patient at this time would like to defer. Did discuss that even though her cholesterol is only slightly outside of the reference range that this would be more of a protective intervention. Encouraged her to discuss this with her PCP before making a complete decision to disregard. Also discussed the recommendation of considering Estradiol D/C. She has been on estragon therapy since late 20s after total hysterectomy. States she tried to come off of this in the past with side effects of poor energy, drying of skin, brittle hair nails. Recommended to discuss with [facility] and could consider slow tapering to reduce side effects. Discussed with Dr. Moses and Gabrielle with Vascular. Research supports against intervention of vertebral stenosis given largely failed interventions and risk of embolic events from intervention. Vascular here would not perform this and will discuss with patient and family. Additional Comments: ROS General/Constitutional: Denies fever/chills, fatigue, weakness ENT: Denies visual changes, nasal drainage, hearing loss, sore throat, trouble swallowing Cardiovascular: Denies chest pain, palpitations, edema Respiratory: Denies cough, sputum, SOB, wheezing, orthopnea GI: Denies nausea, vomiting, abdominal pain, constipation, diarrhea, melena/ hematochezia : Denies dysuria Musculoskeletal: Denies joint/muscle aches, swelling Neurologic: Denies dizziness/lightheadedness, numbness/tingling, weakness Hematologic/Lymphatic: Denies bleeding Skin: Denies rash (Yamilet Womack PA-C) Medications Current Inpatient Medications Medications (Trade) Dose Ordered Sig/Bryn Route Start Time Stop Time Status Last Admin Dose Admin Clopidogrel Bisulfate (plAVix TAB) 75 mg QAM PO 09/04/17 09:00 10/04/17 08:59 09/04/17 07:46 75 MG Miscellaneous Information (Pharmacist Discharge Med Rec Consult) 1 ea UD PRN N/A 09/03/17 13:00 10/03/17 12:59 Acetaminophen (Tylenol Tab) 650 mg Q4H PRN PO 09/03/17 13:00 10/03/17 12:59 Magnesium Hydroxide (Milk Of Magnesia Susp) 30 ml Q12H PRN PO 09/03/17 13:00 10/03/17 12:59 Ondansetron HCl (Zofran Inj) 4 mg Q6H PRN IV 09/03/17 13:00 10/03/17 12:59 Cyanocobalamin (Vitamin B-12 Tab) 100 mcg DAILY PO 09/04/17 09:00 10/04/17 08:59 09/04/17 07:46 100 MCG Fish Oil ([place]-3 (Purified Fish Oil) Cap) 1 gm DAILY PO 09/04/17 09:00 10/04/17 08:59 09/04/17 07:46 1 GM Furosemide (Lasix Tab) 40 mg DAILY PRN PO 09/03/17 15:00 10/03/17 14:59 Lisinopril (Zestril Tab) 10 mg QPM PO 09/03/17 21:00 10/03/17 20:59 09/03/17 20:24 10 MG Metoprolol Tartrate (Lopressor Tab) 12.5 mg BID PO 09/03/17 21:00 10/03/17 20:59 09/04/17 07:44 12.5 MG Niacin (Niaspan Extended Rel Tab) 500 mg BID PO 09/03/17 21:00 10/03/17 20:59 09/04/17 07:46 500 MG Estradiol (Estrace Tab) 0.5 mg QPM PO 09/03/17 21:00 10/03/17 20:59 09/03/17 20:23 0.5 MG Multivitamins/ Minerals (Multivitamin W/ Minerals Tab) 1 tab QAM PO 09/04/17 09:00 10/04/17 08:59 09/04/17 07:46 1 TAB Potassium Chloride (Klor-Con M10) 10 meq DAILY PRN PO 09/03/17 15:00 10/03/17 14:59 mb-[id number]-[id number] Acetate (Vitamin E Cap) 100 interunit DAILY PO 09/04/17 09:00 10/04/17 08:59 09/04/17 07:45 100 INTERUNIT Gadobutrol (Gadavist) 9 mmol UD PRN IV 09/03/17 20:15 09/07/17 20:14 (Yamilet Womack PA-C) Objective Vital Signs Date Time Temp Pulse Resp B/P (MAP) Pulse Ox O2 Delivery O2 Flow Rate FiO2 09/04/17 12:45 94 Room Air 09/04/17 12:00 36.6 58 20 147/74 (98) 93 Room Air 09/04/17 08:00 94 Room Air 09/04/17 08:00 37.3 70 20 153/87 (109) 94 Room Air 09/04/17 04:00 96 Room Air 09/04/17 03:54 36.9 67 20 164/83 (110) 92 Room Air 09/04/17 00:04 37.3 72 18 167/81 (109) 92 Room Air 09/04/17 00:00 96 Room Air 09/03/17 23:06 37.4 80 20 165/95 (118) 96 Room Air 09/03/17 20:29 37.5 88 20 167/97 (120) 95 Room Air 09/03/17 20:29 37.5 88 20 167/97 (120) 95 Room Air 09/03/17 20:00 Room Air 09/03/17 16:00 Room Air 09/03/17 15:33 37.1 71 20 163/84 (110) 93 Room Air 09/03/17 15:33 37.1 71 20 163/84 (110) 93 Room Air (Yamilet Womack PA-C) Physical Exam Notes: General Appearance: WDWN in NAD who is A&O x 3 HEENT: Head is normocephalic/atraumatic; EOMI; PERRLA; Hearing grossly intact; Mucous membranes moist; Pharynx negative for exudate/lesions Neck: Supple; Trachea midline; Neg JVD Heart: RRR with no M/G/R Lungs: CTA in all lung gilbert bilaterally; Respirations unlabored; Neg accessory muscle use Abdomen: Soft, non-tender, non-distended; Positive BS x 4 quadrants Extremities: Capillary refill < 2 seconds; Neg cyanosis or edema Neurological: Speech clear; Gross motor/sensory function intact; Neg focal neurologic deficits -- equal strength b/l to hand grasp, flexion/extension at elbows, dorsiflexion/plantarflexion, and flexion of hips; facial movements symmetric; romberg negative Psychiatric: Appropriate mood/affect Skin: Normal Color; Warm/Dry (Yamilet Womack, PASultanaC) Laboratory Results Last 24 Hours Test 09/04/17 05:42 White Blood Count 5.57 K/uL Red Blood Count 4.41 M/uL Hemoglobin 14.8 g/dL Hematocrit 44.5 % Mean Corpuscular Volume 100.9 fL Mean Corpuscular Hemoglobin 33.6 pg Mean Corpuscular Hemoglobin Concent 33.3 g/dl Platelet Count 240 K/uL Mean Platelet Volume 9.1 fL Neutrophils (%) (Auto) 41.7 % Lymphocytes (%) (Auto) 37.2 % Monocytes (%) (Auto) 18.5 % Eosinophils (%) (Auto) 2.2 % Basophils (%) (Auto) 0.4 % Neutrophils # (Auto) 2.33 K/uL Lymphocytes # (Auto) 2.07 K/uL Monocytes # (Auto) 1.03 K/uL Eosinophils # (Auto) 0.12 K/uL Basophils # (Auto) 0.02 K/uL RDW Standard Deviation 48.4 fL RDW Coefficient of Variation 13.2 % Immature Granulocyte % (Auto) 0.0 % Immature Granulocyte # (Auto) 0.00 K/uL Sodium Level 140 mmol/L Potassium Level 4.2 mmol/L Chloride Level 109 mmol/L Carbon Dioxide Level 25 mmol/L Anion Gap 6.0 mmol/L Blood Urea Nitrogen 20 mg/dl Creatinine 0.94 mg/dl Est Creatinine Clear Calc Drug Dose 53.5 ml/min Estimated GFR () 67.8 Estimated GFR (Non- 58.5 BUN/Creatinine Ratio 20.8 Random Glucose 96 mg/dl Calcium Level 9.4 mg/dl Triglycerides Level 75 mg/dl Cholesterol Level 212 mg/dl HDL Cholesterol 60 mg/dl LDL Cholesterol, Calculated 137 mg/dl VLDL Cholesterol, Calculated 15 mg/dl Cholesterol/HDL Ratio 3.5 (Yamilet Womack PA-C) Assessment and Plan 76 y/o F who was admitted on 09/03 for stroke like sx Acute R Posterior Frontal Lobe and R Parietal Lobe Infarct: Neurological Deficits RESOLVED - Neck MRA shows focal high grade stenosis at origin of L vertebral artery -- Discussed with Dr. Moses and Gabrielle Brooks, Vascular - recommendations that surgical intervention is no supported by research not to mention risk of embolic event during intervention. Discussed with patient who states she would not want anything like that at this time regardless. - Stopped Aggrenox and continue Plavix 75 mg daily - Cholesterol mildly elevated but patient would like to hold on statin therapy - encouraged to discuss with PCP before making complete decision - Continue Niacin 500 mg BID - Discussed Estradiol - consideration for taper and can follow with gyne as outpatient HTN: Lisinopril 10 mg daily and Metoprolol 12.5 mg BID - continues to be mildly hypertensive and will not correct further given CVA Disposition: - Plan to return home tomorrow Discharge planning: home (Yamilet Womack PA-C) Reviewed: Pt Seen/Exam by Me (Livier Davalos DO) History Pt is feeling much improved. She feels all of her sx have resolved. No longer with facial droop or speech issues. Family is present and agrees. She has been eating without issue. No chest pain or SOB. Agree with HPI/ROS as noted. (Livier Davalos DO) Comments General Appearance: WD/WN, no apparent distress Head: normocephalic, atraumatic Eyes: normal inspection, EOMI, sclerae normal Respiratory/Chest: normal breath sounds, no respiratory distress Cardiovascular: regular rate, rhythm, no edema Abdomen/GI: non tender, soft Extremities/Musculoskelatal: no calf tenderness, no pedal edema Neurologic/Psych: alert, normal mood/affect, oriented x 3, + facial droop (L sided-resolved), + pertinent finding (speech seems appropriate) Skin: normal color, warm/dry (Livier Davalos DO) Assessment/Plan 76 y/o F who was admitted on 09/03 for stroke like sx Likely CVA: CT head noted for old infarct MRI with new infarcts noted Not a tpa candidate Telemed neuro recs for plavix MRA shows L vertebral stenosis Unable to obtain ECHO from prior work-up, pending PT/OT/speech Discussed statin use and estriadiol d/c. Pt is interested in neither of these options at this time. I did advise that she could attempt QOD estriadiol and if this managed her sx, it would be less hormone and some benefit. She will consider this. (Livier Davalos, DO)
[2017-09-04] MEDS: LISINOPRIL 10 MG TAB PO SCH (19:33)
[2017-09-04] MEDS: ESTRADIOL 1 MG TAB PO SCH (19:33)
[2017-09-05 04:24] VITALS: BP 152/80; PULSE 62; TEMP 36.9; O2SAT 94
--- NOTE | 2017-09-05 07:41 | ECHOCARDIOGRAM REPORT ---
*NOTICE TO RECEIVING LIBERTARIAN AGENCY This information is strictly Confidential and protected under [place] law. [place] law prohibits you from making any further disclosure of this information unless further disclosure is expressly permitted by the written consent of the person to whom it pertains or is authorized by law. A general authorization for the release of medical or other information is not sufficient for this purpose. Hospital accepts no responsibility if the information is made available to any other person, INCLUDING THE PATIENT. Interpretation Summary * Name: NICK BRYAN Study Date: 09/04/2017 02:24 PM BP: 153/87 mmHg * Patient Location: C.2T\S\S230\S\2 HR: 70 * : 1940 (M/d/y) Gender: Female Height: 62 in * Age: 76 yrs Ethnicity: CA Weight: 215 lb * Ordering Physician: Jhon Moses * Referring Physician: Self, Referred * Performed By: Sridevi Welch RDCS * * Reason For Study: Cerebral Ischemia/Embolus * BSA: 2.0 m2 * -- Conclusions -- * Image qualilty was sub-optimal * Left ventricular systolic function is normal. * Grade I diastolic dysfunction, (abnormal relaxation pattern). * There is mild right ventricular hypertrophy. * IMage quality was inadequate to definitively exclude a patent foramen ovale. Procedure Details * A complete two-dimensional transthoracic echocardiogram was performed (2D, M-mode, Doppler and color flow Doppler). * The study was technically difficult. * There were technical limitations due to patient'sbody habitus * A saline contrast injection was performed to assess for cardiac shunting. * The injection was performed through an intravenous line in the right arm. * The attending nurse who injected the saline contrast was Carly High RN. * A total of 20 cc of agitated saline was given. * A contrast injection of Definity was performed to improve assessment of LV function. * Contrast was injected into an intravenous site in the right arm. * One vial of Definity ultrasound contrast was diluted in normal saline to a total volume of 10 ml. A total of '2' ml of solution was administered during imaging. * Lot # [id number] of Definity utilized for procedure. * Expiration date . * The attending nurse who injected the contrast agent was Carly High RN. Left Ventricle * The left ventricle is grossly normal size. * There is normal left ventricular wall thickness. * Ejection Fraction = 50-55%. * Left ventricular systolic function is normal. * Grade I diastolic dysfunction, (abnormal relaxation pattern). * The left ventricular wall motion is normal. Right Ventricle * The right ventricle is grossly normal size. * There is mild right ventricular hypertrophy. Atria * The left atrial size is normal. * Right atrium not well visualized. Mitral Valve * The mitral valve is grossly normal. * Significant mitral regurgitation is absent. Tricuspid Valve * The tricuspid valve is not well visualized. * There is mild tricuspid regurgitation. Aortic Valve * The aortic valve is not well visualized. * No hemodynamically significant valvular aortic stenosis. * There is no significant aortic regurgitation. Pericardium/Pleural * There appears to be a small, possibly loculated effusion . MMode 2D Measurements and Calculations IVSd 1.3 cm IVSs 1.4 cm LVIDd 4.9 cm LVIDs 3.8 cm LVPWd 0.95 cm LVPWs 1.2 cm IVS/LVPW 1.3 FS 23.9 % EDV(Teich) 114.6 ml ESV(Teich) 60.2 ml EF(Teich) 47.5 % EDV(cubed) 120.1 ml ESV(cubed) 52.9 ml EF(cubed) 55.9 % % IVS thick 11.1 % % LVPW thick 27.9 % LV mass(C)d 206.4 grams LV mass(C)dI 104.7 grams/m\S\2 LV mass(C)s 173.9 grams LV mass(C)sI 88.2 grams/m\S\2 SV(Teich) 54.4 ml SI(Teich) 27.6 ml/m\S\2 SV(cubed) 67.2 ml SI(cubed) 34.1 ml/m\S\2 Ao root diam 3.0 cm Ao root area 6.9 cm\S\2 ACS 1.8 cm LA dimension 3.7 cm LA/Ao 1.3 LVAd ap4 21.3 cm\S\2 LVLd ap4 7.2 cm EDV(MOD-sp4) 53.7 ml EDV(sp4-el) 53.4 ml LVAs ap4 15.9 cm\S\2 LVLs ap4 6.8 cm ESV(MOD-sp4) 35.1 ml ESV(sp4-el) 31.6 ml EF(MOD-sp4) 34.7 % EF(sp4-el) 40.9 % LVAd ap2 17.5 cm\S\2 LVLd ap2 7.7 cm EDV(MOD-sp2) 36.9 ml EDV(sp2-el) 34.1 ml LVAs ap2 11.2 cm\S\2 LVLs ap2 6.4 cm ESV(MOD-sp2) 17.7 ml ESV(sp2-el) 16.5 ml EF(MOD-sp2) 52.1 % EF(sp2-el) 51.5 % LVLd %diff 6.2 % EDV(MOD-bp) 45.3 ml LVLs %diff -5.70 % ESV(MOD-bp) 25.5 ml EF(MOD-bp) 43.7 % SV(MOD-sp4) 18.6 ml SI(MOD-sp4) 9.4 ml/m\S\2 SV(MOD-sp2) 19.2 ml SI(MOD-sp2) 9.7 ml/m\S\2 SV(MOD-bp) 19.8 ml SI(MOD-bp) 10.0 ml/m\S\2 SV(sp4-el) 21.8 ml SI(sp4-el) 11.1 ml/m\S\2 SV(sp2-el) 17.6 ml SI(sp2-el) 8.9 ml/m\S\2 Doppler Measurements and Calculations MV E max nikki 55.6 cm/sec MV A max nikki 75.7 cm/sec MV E/A 0.73 MV dec time 0.25 sec Ao V2 max 110.7 cm/sec Ao max PG 4.9 mmHg Ao max PG (full) 2.3 mmHg LV V1 max PG 2.6 mmHg LV V1 max 80.9 cm/sec PA V2 max 68.5 cm/sec PA max PG 1.9 mmHg TR max nikki 245.0 cm/sec
[2017-09-05 08:00] VITALS: BP 170/88; PULSE 70; TEMP 36.4; O2SAT 93
[2017-09-05] MEDS: CEROVITE ADV FORMULA TAB PO SCH (08:10)
[2017-09-05] MEDS: METOPROLOL TARTRATE 25 MG TAB PO SCH (08:11)
[2017-09-05] MEDS: CLOPIDOGREL BISULFATE 75 MG TAB PO SCH (08:11)
[2017-09-05] MEDS: TOCOPHERYL, DL-ALPHA 100 INTERUNIT CAP PO SCH (08:11)
[2017-09-05] MEDS: NIASPAN 500 MG TABCR PO SCH (08:11)
[2017-09-05] MEDS: OMEGA-3 (PURIFIED FISH OIL) 1 GM CAP PO SCH (08:11)
[2017-09-05] MEDS: CYANOCOBALAMIN 100 MCG TAB (VIT B-12) PO SCH (08:12)
[2017-09-05] MEDS ORDERED: PLV75 PO (08:20)
--- NOTE | 2017-09-05 08:31 | Discharge Instructions ---
Discharge Instructions Date of Service Sep 05, 2017. Admission Reason for Admission: CVA Discharge Discharge Diagnosis / Problem: CVA (Stroke) Discharge Goals Goal(s): Decrease discomfort, Improve function, Increase independence Activity Recommendations Activity Limitations: resume your previous activity . 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 This was sent to your pharmacy. - There is a possibility the Estradiol could be contributing to increased risk of stroke. Would discuss with your GYNE about different options here. -- One option could be to dose this medication every other day to prevent the symptoms that you had when you stopped this before but give you less hormonal exposure. - The neurologist did recommend consideration for transesophageal echo (this is a scope to look at the heart) to better assess. - As well, a Holter monitor to monitor your heart rhythm can be ordered to make sure you are not having any rhythm changes that could explain your strokes. 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 Discussed this is the neurologist and vascular surgery and this type of stenosis does not usually respond adequately to surgical intervention or stenting and research supports that antiplatelet therapy (like Plavix) is the best option. - Would recommend statin therapy (cholesterol medication) as this can help prevent further stenosis (narrowing) of the vessel due to plaque. As well, this type of medication is good for stroke prevention. Please discuss this medication with your family doctor or see what other options are available. Risk Factors for Stroke: You can reduce your chances of stroke by working with your medical provider to adopt a healthy lifestyle. Some specific ways to lower your chance of stroke are: * If you are a smoker, now is the time to stop smoking cigarettes * If you are diabetic, improve the control of your blood sugars * Avoid excessive amounts of alcohol * Control high blood pressure * Lose weight if you are overweight * Be sure to lead an active lifestyle * Eat a healthy diet low in salt, cholesterol and fat You should know about other risk factors for stroke that you are unable to control. These include: * Age 55 years or older * Male gender * Certain racial groups: , or / * Family History of Stroke, Mini stroke or Heart Attack * Sickle Cell Disease Follow Up: It is important for you to keep your follow up appointments with your medical provider. Current Hospital Diet Patient's current hospital diet: AHA Diet (Heart Healthy) Discharge Diet Recommended Diet: AHA Diet (Heart Healthy) Pending Studies Studies pending at discharge: no Laboratory Results Hemoglobin A1c Test 09/03/17 10:01 Range/Units Estimated Average Glucose 114 mg/dl Hemoglobin A1c 5.6 4.5-5.6 % Lipid Panel Test 09/04/17 05:42 Range/Units Triglycerides Level 75 0-150 mg/dl Cholesterol Level 212 H 0-200 mg/dl HDL Cholesterol 60 mg/dl Cholesterol/HDL Ratio 3.5 LDL Cholesterol, Calculated 137 mg/dl Medical Emergencies . Who to Call and When: Medical Emergencies: Call 911 immediately if you experience any of the following warning signs and symptoms of Stroke: * Sudden numbness or weakness of the face, arm or leg, especially on one side of the body * Sudden confusion, trouble speaking or understanding * Sudden trouble seeing in one or both eyes * Sudden trouble walking, dizziness, loss of balance or coordination * Sudden severe headache with no cause Do not delay calling 911 if you experience any warning signs or symptoms of a stroke. Delay in seeking medical attention may affect what treatments can be given to you. . Non-Emergent Contact Non-Emergency issues call your: Primary Care Provider Call Non-Emergent contact if: you have a fever, your pain is concerning you, you have any medication questions . . "Provider Documentation" section prepared by Yamilet Womack. . Stroke Core Measures Reason no t-PA for Stroke: Treatment not indicated Reason no antithrom by day 2: Treatment provided - N/A Reason no antithrom at D/C: Treatment provided - N/A Reason no statin at D/C: Refusal of tx by patient Reason no anticoag w/a fib: Treatment not indicated VTE Core Measure Inpt VTE Proph given/why not?: SCD's
--- NOTE | 2017-09-05 09:19 | Neurology Progress Notes ---
Neurology Progress Note Date of Service Sep 05, 2017. Subjective Follow-up for stroke The patient denies experiencing any residual weakness to the left arm or leg at this time. She denies any headache, vision change, or numbness. The recently completed transthoracic echocardiogram was unable to exclude a PFO. The study was otherwise negative for cardioembolic source. Objective Date Time Temp Pulse Resp B/P (MAP) Pulse Ox O2 Delivery O2 Flow Rate FiO2 09/05/17 08:00 36.4 70 16 170/88 (115) 93 Room Air 09/05/17 04:24 36.9 62 18 152/80 (104) 94 Room Air 09/05/17 04:00 Room Air 09/05/17 00:00 Room Air 09/04/17 23:22 36.6 64 18 146/75 (98) 94 Room Air 09/04/17 20:00 Room Air 09/04/17 19:25 36.6 70 20 170/97 (121) 92 Room Air 09/04/17 16:00 Room Air 09/04/17 15:47 36.6 73 20 146/85 (105) 93 Room Air 09/04/17 12:45 94 Room Air 09/04/17 12:00 36.6 58 20 147/74 (98) 93 Room Air Exam: The patient is alert and fully oriented. Attention and concentration normal. Patient exhibits a normal spontaneous speech and a normal vocabulary. Visual gilbert full to confrontation. Visual acuity normal. Pupils equal round reactive to light and accommodation. Eye movements normal. There is no facial weakness or droop. Palate elevates to midline. Tongue protrudes to midline. There is no pronator drift or ataxia with finger to nose or heel to barcenas. Strength normal for all 4 limbs. Current Inpatient Medications Medications (Trade) Dose Ordered Sig/Bryn Route Start Time Stop Time Status Last Admin Dose Admin Clopidogrel Bisulfate (plAVix TAB) 75 mg QAM PO 09/04/17 09:00 10/04/17 08:59 09/04/17 07:46 75 MG Miscellaneous Information (Pharmacist Discharge Med Rec Consult) 1 ea UD PRN N/A 09/03/17 13:00 10/03/17 12:59 Acetaminophen (Tylenol Tab) 650 mg Q4H PRN PO 09/03/17 13:00 10/03/17 12:59 Magnesium Hydroxide (Milk Of Magnesia Susp) 30 ml Q12H PRN PO 09/03/17 13:00 10/03/17 12:59 Ondansetron HCl (Zofran Inj) 4 mg Q6H PRN IV 09/03/17 13:00 10/03/17 12:59 Cyanocobalamin (Vitamin B-12 Tab) 100 mcg DAILY PO 09/04/17 09:00 10/04/17 08:59 09/04/17 07:46 100 MCG Fish Oil (Gaylord-3 (Purified Fish Oil) Cap) 1 gm DAILY PO 09/04/17 09:00 10/04/17 08:59 09/04/17 07:46 1 GM Furosemide (Lasix Tab) 40 mg DAILY PRN PO 09/03/17 15:00 10/03/17 14:59 Lisinopril (Zestril Tab) 10 mg QPM PO 09/03/17 21:00 10/03/17 20:59 09/04/17 19:33 10 MG Metoprolol Tartrate (Lopressor Tab) 12.5 mg BID PO 09/03/17 21:00 10/03/17 20:59 09/04/17 19:34 12.5 MG Niacin (Niaspan Extended Rel Tab) 500 mg BID PO 09/03/17 21:00 10/03/17 20:59 09/04/17 19:35 500 MG Estradiol (Estrace Tab) 0.5 mg QPM PO 09/03/17 21:00 10/03/17 20:59 09/04/17 19:33 0.5 MG Multivitamins/ Minerals (Multivitamin W/ Minerals Tab) 1 tab QAM PO 09/04/17 09:00 10/04/17 08:59 09/04/17 07:46 1 TAB Potassium Chloride (Klor-Con M10) 10 meq DAILY PRN PO 09/03/17 15:00 10/03/17 14:59 xb-[id number]-Gtaksdhphj Acetate (Vitamin E Cap) 100 interunit DAILY PO 09/04/17 09:00 10/04/17 08:59 09/04/17 07:45 100 INTERUNIT Gadobutrol (Gadavist) 9 mmol UD PRN IV 09/03/17 20:15 09/07/17 20:14 Impression Recent acute embolic infarct to the right cerebral hemisphere resulting in transient left sided weakness in a patient with a 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 Underlying embolic etiology suspected. Recently completed a transthoracic echocardiogram could not exclude a PFO. No evidence of atrial fibrillation. Plan Continue with Plavix 75 mg per day Patient will need to discuss discontinuing estradiol as well as starting statin therapy with her primary care physician Consider obtaining an outpatient Holter monitor versus cardiology consultation for implantable loop recorder to further exclude atrial fibrillation. Consider obtaining an outpatient transesophageal echocardiogram if patient were to have an additional TIA or stroke. No further recommendations at this time
[2017-09-05 11:37] VITALS: BP 147/80; PULSE 60; TEMP 36.4; O2SAT 94
--- NOTE | 2017-09-05 12:12 | Pharmacy Progress Note ---
Pharmacist Stroke Counseling Date of Service Sep 05, 2017. Scope Pharmacy has been consulted to provide medication discharge counseling for this patient admitted with ischemic stroke as per the Pharmacist Discharge Counseling for Stroke Patients Protocol. Medications on Discharge New Medications: Clopidogrel Bisulfate (Clopidogrel) 75 Mg Tab 75 MG PO QAM for 30 Days, #30 TAB Continued Medications: Kdlcjgj-Umezelukr-Pblq (Calcium & Magnesium + Zin 334-134-5 mg) 1 Tab Tab 1 TAB PO DAILY Cyanocobalamin (Vitamin B-12) 100 Mcg Tab 100 MCG PO DAILY, TAB Estradiol (Estradiol) 0.5 Mg Tab 0.5 MG PO QPM for 30 Days, #90 TAB 3 Refills Fish Oil (Liberal-3) 1 Ea Cap 1 CAP PO DAILY, CAP Flaxseed (Linseed) (Flaxseed Oil) 1,000 Mg Cap 1 CAP PO QPM Furosemide (Lasix) 40 Mg Tab 40 MG PO DAILY PRN for Swelling, TAB Trpgkucvgjt-Gmmjhrwrkkv-Zna C- (Glucosamine Chondroitin) 1 Tab Tab 1 TAB PO DAILY Lisinopril (Zestril) 10 Mg Tab 10 MG PO QPM, TAB Metoprolol Tartrate (Lopressor) (Lopressor) 25 Mg Tab 12.5 MG PO AMPM, TAB Multiple Vitamins W/ Minerals (Centrum Silver) 1 Chw Chw 1 TAB PO DAILY Niacin Ext Rel (Niaspan Ext Rel) 500 Mg Tabcr 500 MG PO AMPM, TAB Potassium Chloride (Potassium Chloride Er) 10 Meq Tab 10 MEQ PO DAILY PRN for With Lasix for 90 Days, #90 TAB 3 Refills Vitamin E (Vitamin E) 100 Unit Tab 1 TAB PO DAILY Discontinued Medications: Aspirin-Dipyridamole 25MG/200MG (Aggrenox 200MG/25MG) 1 Cap Cap 1 CAP PO BID, CAP Action The above medications, specifically ones for stroke treatment/prophylaxis, have been reviewed in detail with the patient and/or patient new accounts banking representative(s) prior to discharge. This includes indication, common adverse reactions, drug interactions, and medication administration. Medication counseling has been employed using the teach-back method to ensure understanding. Outcome The patient and/or patient new accounts banking representative(s) have demonstrated understanding of the medications. Please note, they are aware that the pharmacist will call them within 72 hours post-discharge to confirm that the appropriate medications are being taken and answer any further medication related questions the patient might have at that time. Contact information Individual to be contacted: Samantha Whitt Relationship to patient (if applicable): Self Phone number: [phone] Best time to call: ~ 1pm Additional comments: Discussed change in antiplatlet medication from Aggrenox to Plavix. Reiterated with patient the importance of discussing statin therapy with PCP. Thank you for allowing pharmacy to be involved in the care of this patient. Please call [phone] or [phone] with any additional questions
--- NOTE | 2017-09-05 16:42 | Discharge Summary ---
Discharge Summary Date of Service Sep 05, 2017. Discharge Summary Admission Date: Sep 03, 2017 at 12:56 Discharge Date: Sep 05, 2017 Discharge Disposition: Home Principal Diagnosis: Acute R Posterior Frontal Lobe and R Parietal Lobe Infarct Problems/Secondary Diagnoses: Medical Problems: (1) CVA (cerebral vascular accident) (2) Mini stroke Procedures: Brain MRI WITH AND WITHOUT CONTRAST FINDINGS: There are greater than 5 small foci of restricted diffusion to within the right posterior frontal lobe and right parietal lobe consistent with acute embolic infarcts. The midline structures are intact. A 2.5 cm retention cyst within the floor of the right maxillary sinus. The orbits are unremarkable. The mastoid air cells are clear. Multiple old bilateral parietal, occipital, and cerebellar infarcts. Mild atrophic changes within the brain. Increased T2 signal associated with the old bilateral infarcts consistent with gliosis. There is minimal edema associated with the acute right-sided small infarcts. Additional areas of T2 hyperintensity within the periventricular white matter likely represent mild microvascular ischemic change. There is no mass, hematoma, midline shift. No abnormal enhancement. IMPRESSION: 1. A few small acute infarcts seen within the right posterior frontal lobe and right parietal lobe. 2. Multiple old additional infarcts as described above. 3. Mild atrophy and mild microvascular ischemic changes. NECK MRA FINDINGS: The aortic arch and proximal great vessels are widely patent. The proximal right common carotid artery is partially obscured by venous contamination. Otherwise, there is no significant stenosis or occlusion identified within the bilateral common carotid or internal carotid arteries. 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 The right vertebral artery is widely patent. No evidence for carotid or vertebral artery dissection. IMPRESSION: 1. No significant stenosis, occlusion, or dissection identified within the carotid or right vertebral arteries. 2. 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 The remaining portions of the left vertebral artery are patent. Brain MRA FINDINGS: Visualized intracranial internal carotid arteries, distal vertebral arteries, and basilar artery are widely patent. There is no significant stenosis, occlusion, or aneurysm seen within the bilateral ACAs, MCAs, or riding double. IMPRESSION: No significant stenosis, occlusion, or aneurysm within the [place]. ECHOCARDIOGRAM -- Conclusions -- * Image quality was sub-optimal * Left ventricular systolic function is normal. * Grade I diastolic dysfunction, (abnormal relaxation pattern). * There is mild right ventricular hypertrophy. * IMage quality was inadequate to definitively exclude a patent foramen ovale. Consultations: 1. Neurology 2. PT/OT/Speech Medication Reconciliation New Medications: Clopidogrel Bisulfate (Clopidogrel) 75 Mg Tab 75 MG PO QAM for 30 Days, #30 TAB Continued Medications: Uwszzvd-Knwvzeunp-Njlp (Calcium & Magnesium + Zin 334-134-5 mg) 1 Tab Tab 1 TAB PO DAILY Cyanocobalamin (Vitamin B-12) 100 Mcg Tab 100 MCG PO DAILY, TAB Estradiol (Estradiol) 0.5 Mg Tab 0.5 MG PO QPM for 30 Days, #90 TAB 3 Refills Fish Oil ([place]-3) 1 Ea Cap 1 CAP PO DAILY, CAP Flaxseed (Linseed) (Flaxseed Oil) 1,000 Mg Cap 1 CAP PO QPM Furosemide (Lasix) 40 Mg Tab 40 MG PO DAILY PRN for Swelling, TAB Glmdwyrndll-Cudxobelhze-Kor C- (Glucosamine Chondroitin) 1 Tab Tab 1 TAB PO DAILY Lisinopril (Zestril) 10 Mg Tab 10 MG PO QPM, TAB Metoprolol Tartrate (Lopressor) (Lopressor) 25 Mg Tab 12.5 MG PO AMPM, TAB Multiple Vitamins W/ Minerals (Centrum Silver) 1 Chw Chw 1 TAB PO DAILY Niacin Ext Rel (Niaspan Ext Rel) 500 Mg Tabcr 500 MG PO AMPM, TAB Potassium Chloride (Potassium Chloride Er) 10 Meq Tab 10 MEQ PO DAILY PRN for With Lasix for 90 Days, #90 TAB 3 Refills Vitamin E (Vitamin E) 100 Unit Tab 1 TAB PO DAILY Discontinued Medications: Aspirin-Dipyridamole 25MG/200MG (Aggrenox 200MG/25MG) 1 Cap Cap 1 CAP PO BID, CAP Discharge Exam ROS: General/Constitutional: Denies fever/chills, fatigue, weakness ENT: Denies visual changes Cardiovascular: Denies chest pain, palpitations Respiratory: Denies cough, sputum, SOB, wheezing, orthopnea GI: Denies nausea, vomiting, abdominal pain, constipation, diarrhea, melena/ hematochezia : Denies dysuria Musculoskeletal: Denies joint/muscle aches, weakness, swelling Neurologic: Denies dizziness/lightheadedness, numbness/tingling, weakness Hematologic/Lymphatic: Denies bleeding/clotting abnormalities Skin: Denies rash PHYSICAL EXAM: General Appearance: WDWN in NAD who is A&O x 3 HEENT: Head is normocephalic/atraumatic; EOMI; PERRLA; Hearing grossly intact; Mucous membranes moist; Pharynx negative for exudate/lesions Neck: Supple; Trachea midline; Neg JVD Heart: RRR with no M/G/R Lungs: CTA in all lung gilbert bilaterally; Respirations unlabored; Neg accessory muscle use Abdomen: Soft, non-tender, non-distended; Positive BS x 4 quadrants Extremities: Capillary refill < 2 seconds; Neg cyanosis or edema Neurological: Speech clear; Gross motor/sensory function intact; Neg focal neurologic deficits Psychiatric: Appropriate mood/affect Skin: Normal Color; Warm/Dry Hospital Course ADMISSION: 76 y/o F c/o stroke sx. Pt states that she fell around 9am after feeling like her legs were too weak to hold her. She felt like both legs were unable to bear weight. She was able to pull herself up along the banister and get to the bathroom where she had a large bowel movement. She was unable to use her L hand well to pick things up. She was having a hard time speaking due to inability to move her mouth well. She had no confusion during this time. She did not lose consciousness or hit her head with her fall. Prior to this, she had been having a normal night. Yesterday was a busy day for her and she had no issues going about her tasks. In the ED, pt was evaluated by tele-med with Dr. Montoya who recommended for plavix, MRA/MRI, and inpt management. She was not deemed a candidate for tpa given resolution of sx. At present, pt feels that she is still having some issues with her speech and family states that the L sided facial droop is not her baseline. Pt has had multiple strokes and TIAs in the past. Her first was 9 years ago and she has been on aggrenox since that time. She has not missed any doses of this medication recently. She saw a neurologist at that time, but is not sure who she saw other than to say it was in [place] somewhere. She does not follow with neurology. Pt had a similar episode 06/2017. This also resolved somewhat quickly. Pt states that she has also had a substantial cardiac work-up with a cardiology out of [facility]. She does not know his name. She states that she was told her heart was fine. She did have an ECHO as part of this work-up. Pt denies fever, SOB, chest pain, abd pain, n/v/c/d, LE pain or swelling. HOSPITAL COURSE: Ms. Whitt was admitted for R Posterior Frontal Lobe and R Parietal Lobe Infarct. Her Aggrenox was discontinued and she will continue on Plavix 75 mg daily. On imaging she was found to have a focal high-grade stenosis at the origin of the L vertebral artery. Discussed with Neurology and Vascular Surgery that surgical intervention is not recommended due to not a lot of evidence of success with intervention. Recommendations is for antiplatelet therapy. Discussed with patient who also insists that she would not want surgical intervention either way. She did not show any signs of arrhythmias on monitor but given frequent CVAs and multiple locations she can consider Holter monitor vs Loop Recorder to further evaluate. Patient states she really would not want this either. Her total cholesterol is just slightly outside the norm at 212 but she does not want to utilize statin therapy. Natural options were discussed in detail with her. It was suggested to consider titrating down on her Estradiol which can increase her thromboembolic risk. She is reluctant to this but states she may try to even dose every other day to avoid symptoms if she would stop this all together. Did recommend for her to discuss with GYNE as well. Patient was continued on her home BP medications, she is occ. hypertensive but did not make adjustments given recent CVA. In the long-term, better BP control may be warranted however given age, hypotension can be more of a hazard for her. Did obtain an echocardiogram that did not see a PFO to explain her strokes but could not get a complete visualization and a VIRGIE could be considered but again patient does not really want to do this either. Patient is completely resolved of her presenting symptoms and was discharged home. Total Time Spent: Greater than 30 minutes This includes examination of the patient, discharge planning, medication reconciliation, and communication with other providers. Discharge Instructions Please refer to the electronic Patient Visit Report (Discharge Instructions) for additional information. Additional Copies To Asif Vasquez PA-C Reviewed: Pt Seen/Exam by Me History Pt feels at her usual. She has had no recurrence of any of her sx that brought her to the ED. Tolerating PO without issue. Denies chest pain, SOB. Agree with HPI/ROS as noted by PA. Comments General Appearance: WD/WN, no apparent distress Head: normocephalic, atraumatic Eyes: normal inspection, EOMI, sclerae normal Respiratory/Chest: normal breath sounds, no respiratory distress Cardiovascular: regular rate, rhythm, no edema Abdomen/GI: non tender, soft Extremities/Musculoskelatal: no calf tenderness, no pedal edema Neurologic/Psych: alert, normal mood/affect, oriented x 3, + facial droop (L sided-resolved), + pertinent finding (speech seems appropriate), CN II-XII intact Skin: normal color, warm/dry Assessment/Plan 76 y/o F who was admitted on 09/03 for stroke like sx Likely CVA: CT head noted for old infarct MRI with new infarcts noted Not a tpa candidate Telemed neuro recs for plavix MRA shows L high grade vertebral stenosis as noted above ECHO neg PT/OT/speech are all WNL Again discussed statin use and estriadiol d/c. I did advise that she could attempt QOD estriadiol and if this managed her sx, it would be less hormone and some benefit. She does seem more willing to accept this trial. She is still very resistant to statin use. "I want to be as natural as possible. " I did discuss again the issues with her cholesterol level and why this may be what has been causing ongoing stroke/TIA for her. We discussed red rice yeast, which I did inform her has statin in it, as well as CoQ10 use with statins or RRY. We also discussed dietary changes at length, c/w Mediterranean diet. Also adding in several 10-15 minute treadmill walks daily.
--- NOTE | 2017-09-10 10:50 | Pharmacy Progress Note ---
Pharmacist Post D/C Phone Note Date of phone call: Sep 10, 2017. Individual with whom pharmacist spoke to: Samantha The following questions were reviewed during the phone call with responses listed below each: Can you tell me the medications that you are currently taking as well as when and how you take each medication? - Medications Dose Route/Sig Max Daily Dose Days Date Category Dose Instructions Clopidogrel (Clopidogrel Bisulfate) 75 Mg Tab 75 Mg PO QAM 30 09/05/17 Rx Vitamin E 100 Unit Tab 1 Tab PO DAILY 09/03/17 Reported Vitamin B-12 (Cyanocobalamin) 100 Mcg Tab 100 Mcg PO DAILY 09/03/17 Reported Niaspan Ext Rel (Niacin) 500 Mg Tabcr 500 Mg PO AMPM 09/03/17 Reported Lopressor (Metoprolol Tartrate) 25 Mg Tab 12.5 Mg PO AMPM 09/03/17 Reported Zestril (Lisinopril) 10 Mg Tab 10 Mg PO QPM 09/03/17 Reported Flaxseed Oil (Flaxseed (Linseed)) 1,000 Mg Cap 1 Cap PO QPM 09/03/17 Reported [place]-3 (Fish Oil) 1 Ea Cap 1 Cap PO DAILY 09/03/17 Reported Estradiol 0.5 Mg Tab 0.5 Mg PO Q2D 30 09/03/17 Reported patient attempting to wean off or take less per d/c instructions. Glucosamine Chondroitin (Kuovzotoacf-Sahimrylfym-Vfx C-) 1 Tab Tab 1 Tab PO DAILY 09/03/17 Reported Centrum Silver (Multiple Vitamins W/ Minerals) 1 Chw Chw 1 Tab PO DAILY 09/03/17 Reported When have you missed any doses of your medications? - no missed doses What side effects are you having from your medications? - no issues What questions do you have about your medications? - none What problems are you having obtaining your medications? - none When is your next appointment with your primary care doctor? - tomorrow - had to reschedule from today to tomorrow due to inclement weather Additional comments: - Pt feeling great and continues to do better each day. Medication changes noted. As per the Pharmacist Discharge Counseling for Stroke Patients Protocol, this phone call has been completed within 72 hours of discharge. Thank you for allowing us to be involved in the care of this patient.
== END 2017-09-05 12:56 | disposition home or self-care (01) | DRG 66 ==
LOC: EDBD 10:01 → C.EDB 10:01 → C.2T 12:56 → ENRESERV 13:25
PROVIDERS: ADMIT Family Medicine; ATTEND Family Medicine
DX: I63.8 Other cerebral infarction (principal); R47.1 Dysarthria and anarthria; R29.810 Facial weakness; R29.700 NIHSS score 0; I67.2 Cerebral atherosclerosis; E78.5 Hyperlipidemia, unspecified; I10 Essential (primary) hypertension; Z79.899 Other long term (current) drug therapy; Z79.02 Long term (current) use of antithrombotics/antiplatelets; Z86.73 Personal history of transient ischemic attack (TIA), and cerebral infarction without residual deficits; Z91.81 History of falling; Z82.3 Family history of stroke; Z82.49 Family history of ischemic heart disease and other diseases of the circulatory system

== ENCOUNTER → 2017-09-16 | Outpatient (CLI) | payer OTHER ==
[~2017-09-16] MED LIST changes: -AGG PO; -CALC-478 PO; -FIBE1CHW8; -FRS/40 PO; -HYZ/50125 PO; -MULT-842; -POTA-74 PO; -RED1CAP5
--- NOTE | 2017-09-16 17:29 | DIAGNOSTIC IMAGING REPORT ---
LUMBAR SPINE 2 OR 3 VIEWS CLINICAL HISTORY: 76 years-old Female presenting with INTERVERTEBRAL DISC DISORDERS. TECHNIQUE: Frontal, lateral, and coned in lateral views of the lumbar spine were obtained. COMPARISON: None. FINDINGS: Mild dextrocurvature of the lumbar spine centered at L3-4. Otherwise normal lumbar lordosis. Vertebral bodies maintain normal height and alignment. Mild intervertebral disc height loss noted at L2-3. Vacuum disc phenomenon noted at L4-5 with disc height loss most pronounced posteriorly. Mild anterior osteophytosis noted at several levels. No compression deformity or evidence of subluxation. Facet arthropathy suspected in the lower lumbar spine with resultant osseous neural foraminal narrowing at L4-5 and L5-S1. Atherosclerosis. Nonobstructive bowel gas pattern. IMPRESSION: 1. No radiographic evidence of compression deformity. 2. Degenerative changes most significant in the lower lumbar spine with possible osseous neural foraminal narrowing at L4-5 and L5-S1. Electronically signed by: Senthil Alvarado M.D. 09/16/2017 5:27 PM Dictated Date/Time: 09/16/2017 5:18 PM
== END | disposition home or self-care (01) ==
LOC: C.RAD 16:16
PROVIDERS: ATTEND Physician Assistant
DX: M51.16 Intervertebral disc disorders with radiculopathy, lumbar region (principal)

== ENCOUNTER → 2017-09-29 | Outpatient (CLI) | payer OTHER ==
--- NOTE | 2017-09-29 14:12 | DIAGNOSTIC IMAGING REPORT ---
LUMBAR SPINE W/O CONTRAST CLINICAL HISTORY: 76 years-old Female with INTERVERTEBRAL DISC DISORDERS W RADICULOPATHY LUMBAR REGION. Chronic low back pain with stiffness and difficulty walking. Pain extends into the buttocks with radicular symptoms of the bilateral lower extremities. COMPARISON: Lumbar spine radiographs 09/16/2017 TECHNIQUE: Multiplanar, multi sequence MRI of the lumbar spine was performed without intravenous contrast. FINDINGS: There is no focal bone marrow edema, acute fracture or subluxation identified. Probable perineural root sleeve cyst seen on the right at S3 measuring approximately 1.5 cm. Signal within the imaged thoracic spinal cord appears to be within normal limits. Conus medullaris terminates at the L2 level. The cauda equina appear unremarkable. No aortic aneurysm or adenopathy identified. There is suggestion of renal cortical thinning bilaterally with perinephric stranding. Uterus appears to be surgically absent. Patient obesity noted. T12-L1: Mild intervertebral disc space narrowing with spondylitic spurring and moderate facet arthropathy. No central canal or foraminal narrowing. L1-L2: Moderate intervertebral disc space narrowing with spondylitic spurring, moderate facet arthrosis with circumferential annular disc bulge. Additionally, there is a central disc extrusion which extends 6 mm caudally which causes mild central canal stenosis. Additionally, there is mild bilateral foraminal narrowing. L2-L3: Moderate intervertebral disc space narrowing with spondylitic spurring and circumferential annular disc bulge with central disc protrusion. Severe facet arthrosis with ligamentum flavum thickening is also noted resulting in moderate central canal narrowing with AP dimension of the thecal sac measuring 7 mm. There is mild to moderate right and moderate left foraminal narrowing. L3-L4: Moderate intervertebral disc space narrowing with spondylitic spurring and small circumferential annular disc bulge which favors the left lateral recess and left foramen. Moderate to severe facet arthrosis with ligamentum flavum thickening. There is mild central canal with mild bilateral foraminal narrowing. L4-L5: Moderate intervertebral disc space narrowing with 4 mm anterolisthesis L4 on L5. Prominent spondylitic spurring is noted in addition to circumferential annular disc bulging. There is severe facet arthrosis with ligamentum flavum thickening and bilateral facet effusions. These changes cause severe central canal narrowing with AP dimension of the thecal sac measuring 5 mm. There is moderate right and moderate to severe left foraminal stenosis. L5-S1: Mild to moderate intervertebral disc space narrowing with spondylitic spurring and posterior disc bulge. Severe facet arthrosis with facet effusions. Central canal is patent. There is mild bilateral foraminal narrowing. IMPRESSION: 1. At L4-L5, intervertebral disc space narrowing with spondylitic spurring, severe facet arthrosis and circumferential annular disc bulge results in severe central canal, moderate right and moderate to severe left foraminal narrowing. 2. Multifactorial degenerative changes at L2-L3 result in moderate central canal, mild to moderate right and moderate left foraminal narrowing. 3. Mild central canal and mild bilateral foraminal stenosis at L3-L4. The above report was generated using voice recognition software. It may contain grammatical, syntax or spelling errors. Electronically signed by: Kurtis Holland M.D. 09/29/2017 2:11 PM Dictated Date/Time: 09/29/2017 12:35 PM
== END | disposition home or self-care (01) ==
LOC: C.MRI 11:19
PROVIDERS: ATTEND Physician Assistant
DX: M51.16 Intervertebral disc disorders with radiculopathy, lumbar region (principal)

== ENCOUNTER → 2017-10-28 | Outpatient (CLI) | payer OTHER ==
--- NOTE | 2017-10-28 15:53 | DIAGNOSTIC IMAGING REPORT ---
ULTRASOUND VENOUS DOPPLER LWR EXT BILA CLINICAL HISTORY: HX STROKE LEG SWELLING COMPARISON STUDY: No previous studies for comparison. FINDINGS: Real-time and color flow Doppler imaging were performed. Flow was seen within the femoral, popliteal and calf veins with no intraluminal thrombus demonstrated. The saphenous vein is patent. IMPRESSION: No evidence of lower extremity DVT. Electronically signed by: Hammad Isaac M.D. 10/28/2017 3:52 PM Dictated Date/Time: 10/28/2017 3:52 PM
== END | disposition home or self-care (01) ==
LOC: C.ULTR 15:03
PROVIDERS: ATTEND Internal Medicine Endocrinology, Diabetes & Metabolism
DX: I63.9 Cerebral infarction, unspecified (principal); Z86.79 Personal history of other diseases of the circulatory system

== ENCOUNTER → 2017-11-12 | Outpatient (CLI) | payer OTHER ==
[~2017-11-12] MED LIST changes: -ESTR0.5T3 PO; +FIBE1CHW8; +HYZ/50125 PO; -LISI-461 PO; +MULT-842; +RED1CAP5
--- NOTE | 2017-11-12 11:18 | DIAGNOSTIC IMAGING REPORT ---
(RENAL)RETROPERITON COMP CLINICAL HISTORY: 77 years-old Female presenting with E21.0 Primary [id number]. TECHNIQUE: Real-time grayscale and limited color and spectral Doppler ultrasound imaging of the kidneys and bladder was performed. COMPARISON: None. FINDINGS: Right kidney: Normal echogenicity of renal parenchyma. Right kidney measures 11.8 cm. No hydronephrosis. No convincing evidence of calculus or mass. Left kidney: Normal echogenicity of renal parenchyma. Left kidney measures 12.2 cm. No hydronephrosis. No convincing evidence of calculus or mass. Bladder: Incompletely distended limiting evaluation. Allowing for this, polypoid mass with internal vascular waveforms on spectral Doppler. This mass measures 1.7 x 2.3 x 2.1 cm located along the posterior wall. Bilateral ureteral jets present. Other: None. IMPRESSION: 1. 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 Urologic consultation recommended. Correlate with cystoscopy. 2. No hydronephrosis. The report will be called/faxed according to standard departmental protocol. Electronically signed by: Senthil Alvarado M.D. 11/12/2017 11:16 AM Dictated Date/Time: 11/12/2017 11:15 AM
== END | disposition home or self-care (01) ==
LOC: C.ULTR 10:09
PROVIDERS: ATTEND Internal Medicine Endocrinology, Diabetes & Metabolism
DX: E21.0 Primary hyperparathyroidism (principal); E83.52 Hypercalcemia; N32.9 Bladder disorder, unspecified

== ENCOUNTER 2024-05-26 11:00 | Observation (INO) ==
--- NOTE | 2024-05-26 11:15 | Emergency Department Note ---
Impression & Plan Syncope, History of heart failure, CHI (closed head injury) ED Provider Note NAME: NICK BRYAN AGE: 83 SEX: F : 1940 ARRIVES VIA: Ambulance INFORMANT: Patient, EMS report, daughter ED PROVIDER(S): Elijah Lane MD CHIEF COMPLAINT: Syncope MEDICAL DECISION MAKING: Patient presents due to concern for syncope. IV was established and blood work was obtained. CT head and cervical spine obtained. Patient was ordered Tylenol and an ice pack. Blood work shows mild leukopenia with normal hemoglobin and platelet count. The patient's kidney function is unremarkable. Initial troponin of 18.8 but no active chest pain or shortness of breath. Old left lateral branch block noted. Urinalysis does not show evidence of obvious infection. CT and cervical spine are negative. I did update the patient the patient's family bedside of the findings. Given the patient's syncope with known history of prior heart disease do believe the patient would benefit from admission and monitoring. I did speak the on-call hospital service Dr. Dominique and the patient was admitted to the medicine service. Discussion w/ other healthcare providers: Dr. Dominique inpatient medicine service Prior /Outside records reviewed: None Differential diagnosis: Vasovagal event, dehydration, infection, hypoglycemia, electrolyte abnormalities, arrhythmia, pulmonary embolism, seizure among others were considered. Diagnostics, as interpreted by me: ECG: Normal sinus rhythm, rate of 62, prolonged NM, wide QRS, left bundle branch block pattern. No obvious Sgarbossa criteria. No significant change for comparison January 26, 2024. Cardiac monitoring: An order was placed for continuous cardiac monitoring. The monitor shows a rate of 65 with sinus rhythm. Patient was placed on pulse oximetry Medical decision rules: Nigerian head CT rule Imaging studies: I informally interpreted the patient's CT head does not show obvious ICH right parietal scalp swelling noted, prior cerebellar encephalomalacia notedwith formal report to follow. HPI: Patient presents due to concern for syncope. The patient states that she was peeling/cutting potatoes when she started get very warm she continued to get warm and subsequently passed out. Patient does complain of some mild headache as well as at the back of the head where she likely hit her head. EMS had initially called in concerned about a STEMI the patient does have a left bundle branch block and they did give her 4 aspirin. The patient never had any complaints of any chest pain or shortness of breath. Patient does have a prior history of low ejection fraction and prior DVT. She has follow-up with Dr. De La Torre with cardiology. Patient does have a prior history of strokes. No prior history of MS. Patient does not believe that she is passed out before. The patient denies any infectious symptoms no nausea or vomiting. The patient denies any new neck pain. The patient does have some chronic issues but does not feel as though it is acute. Patient denies any pain in her extremities chest back or abdomen. Patient is accompanied by her daughter. Patient does report that she does have a loop recorder in place but it is nonfunctioning. PAST MEDICAL HISTORY: See Below PAST SURGICAL HISTORY: See Below SOCIAL HISTORY: See Below HOME MEDICATIONS: See Below ALLERGIES: See Below VITALS: See Below PHYSICAL EXAMINATION: GENERAL: NAD, non-toxic. Wearing glasses. EYE EXAM: Normal conjunctiva. PERRL, no anisocoria and EOM's grossly intact w/o pain. Head: Possible hematoma to the right occipital area no obvious deformity. OROPHARYNX: Moist mucus membranes, grossly normal dentition. NECK: Trachea midline, no stridor. Supple, no nuchal rigidity, no adenopathy, non-tender. No signs of meningismus. FROM of the neck with good chin to chest and neck extension. No reproducible midline C-spine pain or step-offs. LUNGS: Clear to auscultation. Normal chest wall mechanics. HEART: NSR, no MRG. ABDOMEN: Abdomen soft, non-tender, no masses, no rebound or guarding. BACK: No CVA TTP. SKIN: No rashes and no bruising. UPPER EXTREMITIES: Upper extremities are grossly normal. No TTP or deformity. LOWER EXTREMITIES: Grossly normal, no edema. No TTP or deformity. NEURO EXAM: A&O x3, cranial nerves II-XII grossly intact, normal speech, moves all 4 extremities. Past Med/Surg History Problem List (Updated 05/26/24 @ 17:[address] MD) CHI (closed head injury) (Acute) History of heart failure (Acute) Syncope (Acute) Syncope Left knee DJD Trichilemmal cyst Dyspnea on effort HFrEF (heart failure with reduced ejection fraction) Osteoarthritis PVD (peripheral vascular disease) Chronic diastolic heart failure Scalp cyst Hypertension Chronic venous insufficiency Tonsillolith Impacted cerumen of both ears Otalgia, left ear Sensorineural hearing loss (SNHL) of both ears H/O TIA (transient ischemic attack) and stroke H/O: CVA (cerebrovascular accident) TIA (transient ischemic attack) Degenerative arthritis of knee, bilateral Ischemic embolic stroke (Acute) Other hyperlipidemia (Acute) Primary hyperparathyroidism (Acute) Medical History Hypercholesterolemia Transient cerebral ischemia History of stroke Cerebral artery occlusion Anaphylaxis Arthritis 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 Surgical History History of surgery Insertion of Loop recorder/pacemaker H/O varicose vein ligation H/O rectocele repair History of dilation and curettage History of appendectomy H/O removal of cyst right wrist- 1994 H/O total hysterectomy with removal of ovaries Family History Father Hypertension Stroke Heart disease Mother Alzheimer disease Other No family history of adverse response to anesthesia No family history of bleeding disorder Thyroid disorder Denies family history of Ovarian cancer Breast cancer Colorectal cancer Social History Smoking Status: Never smoker Do You Dip or Chew Tobacco: No; Hx Alcohol Use: No Hx Substance Use: No Preferred Language: Bengali Beliefs That Will Affect Care: None marital status: Current Living Situation: Spouse current occupational status: retired How many Children do You have: 4 Other Information That Helps Us Care for You: No Feels Safe at Home: No Is there a partner from a previous relationship who is making you feel unsafe now?: No Any Concerns about Your Family Situation: No Would You Like to Speak to Someone About Your Situation: No Safety Concerns: Feels Safe At This Time Dental Care, Regularly: Yes Assistive Devices: Glasses Allergies Allergies Allergy/AdvReac Type Severity Reaction Status Date / Time Penicillins Allergy Severe ANAPHYLAXIS Verified 04/23/24 12:22 procaine [From Novocain] Allergy Verified 04/23/24 12:22 Home Meds Home Medications Medication Instructions Recorded Confirmed losartan 50 mg tablet 50 mg PO PM #30 tabs 07/09/19 05/26/24 niacin 500 mg tablet,extended 500 mg PO BID 03/27/20 05/26/24 release omega-3 fatty acids 1,000 mg 1,000 mg PO PM 03/05/21 05/26/24 capsule (Fish Oil Concentrate) vitamin E (dl, acetate) 45 mg (100 450 mg PO QAM 02/03/24 05/26/24 unit) capsule cholecalciferol (vitamin D3) 25 1,000 unit PO QAM 02/25/24 05/26/24 mcg (1,000 unit) tablet torsemide 20 mg tablet 40 mg PO .@NOON 02/25/24 05/26/24 empagliflozin 10 mg tablet 10 mg PO .@NOON 05/26/24 05/26/24 metoprolol succinate 25 mg 25 mg PO .@NOON 05/26/24 05/26/24 tablet,extended release 24 hr (Toprol XL) multivitamin 1 tab PO QAM 05/26/24 05/26/24 spironolactone 25 mg tablet 12.5 mg PO .@NOON 05/26/24 05/26/24 Previous Rx's Medication Instructions Recorded apixaban 5 mg tablet (Eliquis) 5 mg PO BID #60 tabs 04/23/24 Results & Data (ED) Vital Signs Vital Signs - 24 hr 05/26/24 10:49 05/26/24 10:49 05/26/24 11:05 Temperature 36.6 C Temperature Source Oral Pulse Rate 62 60 Pulse Rate [Apical] Pulse Rhythm Regular Regular Pulse Rhythm [Apical] Pulse Strength Normal Pulse Strength [Apical] Respiratory Rate 20 20 Respiratory Effort / Characteristics Non-Labored Spontaneous Respiratory Depth Normal Respiratory Pattern Blood Pressure 132/78 Blood Pressure [Right Arm] Blood Pressure Mean 96 Blood Pressure Mean [Right Arm] Blood Pressure Position Lying Blood Pressure Position [Right Arm] Pulse Oximetry 99 100 99 Oxygen Delivery Method Room Air Room Air Room Air Sepsis Recent Fever Within 48 Hours No Sepsis New/Unexplained Change in Mental Status No Sepsis Action Taken by Nursing No Action Required 05/26/24 11:05 05/26/24 11:05 05/26/24 11:25 Temperature 36.6 C Temperature Source Pulse Rate 58 L Pulse Rate [Apical] Pulse Rhythm Pulse Rhythm [Apical] Pulse Strength Pulse Strength [Apical] Respiratory Rate 20 20 Respiratory Effort / Characteristics Non-Labored Spontaneous Respiratory Depth Normal Respiratory Pattern Blood Pressure 132/78 Blood Pressure [Right Arm] 141/82 H Blood Pressure Mean Blood Pressure Mean [Right Arm] 101 Blood Pressure Position Blood Pressure Position [Right Arm] Lying Pulse Oximetry 100 99 98 Oxygen Delivery Method Room Air Room Air Room Air Sepsis Recent Fever Within 48 Hours Sepsis New/Unexplained Change in Mental Status Sepsis Action Taken by Nursing 05/26/24 11:26 05/26/24 12:25 05/26/24 12:49 Temperature Temperature Source Pulse Rate 68 Pulse Rate [Apical] 80 88 Pulse Rhythm Pulse Rhythm [Apical] Regular Regular Pulse Strength Pulse Strength [Apical] Normal Normal Respiratory Rate 20 18 Respiratory Effort / Characteristics Non-Labored Spontaneous Non-Labored Spontaneous Respiratory Depth Normal Normal Respiratory Pattern Regular Regular Blood Pressure Blood Pressure [Right Arm] Blood Pressure Mean Blood Pressure Mean [Right Arm] Blood Pressure Position Blood Pressure Position [Right Arm] Pulse Oximetry 98 93 Oxygen Delivery Method Room Air Room Air Sepsis Recent Fever Within 48 Hours Sepsis New/Unexplained Change in Mental Status Sepsis Action Taken by Nursing 05/26/24 13:00 Temperature Temperature Source Pulse Rate Pulse Rate [Apical] 80 Pulse Rhythm Pulse Rhythm [Apical] Regular Pulse Strength Pulse Strength [Apical] Normal Respiratory Rate 20 Respiratory Effort / Characteristics Non-Labored Spontaneous Respiratory Depth Normal Respiratory Pattern Regular Blood Pressure Blood Pressure [Right Arm] 146/95 H Blood Pressure Mean Blood Pressure Mean [Right Arm] 112 Blood Pressure Position Blood Pressure Position [Right Arm] Lying Pulse Oximetry Oxygen Delivery Method Room Air Sepsis Recent Fever Within 48 Hours Sepsis New/Unexplained Change in Mental Status Sepsis Action Taken by [facility] Medications Current Medication List: was personally reviewed by me Laboratory Data Attestation: I reviewed the patient's lab results. 05/26/24 11:19 05/26/24 11:19 Lab Results 05/26/24 Range/Units 11:19 WBC 4.38 L (4.8-10.8) K/ul RBC 4.19 L (4.20-5.40) M/uL Hgb 15.1 (12.0-16.0) g/dl Hct 42.7 (37.0-47.0) % MCV 101.9 H (80.0-100.0) fL MCH 36.0 H (25.0-34.0) pg MCHC 35.4 (32.0-36.0) g/dL RDW Std Deviation 48.9 H (36.4-46.3) fL RDW Coeff of Binh 13.1 (11.5-14.5) % Plt Count 203 (130-400) K/uL MPV 9.2 L (9.4-12.4) fL Immature Gran % (Auto) 0.5 % Neut % (Auto) 41.7 % Lymph % (Auto) 36.5 % [place] % (Auto) 17.6 % Eos % (Auto) 3.0 % Baso % (Auto) 0.7 % Neut # (Auto) 1.83 (1.40-6.50) K/uL Lymph # (Auto) 1.60 (1.20-3.40) K/uL [place] # (Auto) 0.77 H (0.11-0.59) K/uL Eos # (Auto) 0.13 (0.00-0.50) K/uL Baso # (Auto) 0.03 (0.00-0.20) K/uL Immature Gran # (Auto) 0.02 (0.01-0.20) K/uL PT 13.0 H (9.0-12.0) Seconds INR 1.2 H (0.9-1.1) APTT 29 (21-31) Seconds PTT Ratio 1.1 Sodium 139 (136-145) mmol/L Potassium 3.5 (3.5-5.1) mmol/L Chloride 102 (98-107) mmol/L Carbon Dioxide 29 (21-32) mmol/L Anion Gap 8 (3-11) BUN 22 (6-23) mg/dl Creatinine 1.06 (0.6-1.2) mg/dl Est Cr Clr Drug Dosing 49.2 ml/min eGFR 51.80 BUN/Creatinine Ratio 20.8 H (10-20) Glucose 119 H (70-99(Fasting)) mg/dl Calcium 9.7 (8.6-10.3) mg/dl Magnesium 1.8 (1.7-2.4) mg/dl Total Bilirubin 1.1 H (0.2-1.0) mg/dl AST 40 H (13-39) U/L ALT 27 (7-52) U/L Alkaline Phosphatase 260 H (34-104) U/L Troponin I High Sens 18.8 H (0-14) pg/ml Total Protein 6.5 (6.0-8.3) gm/dl Albumin 3.2 L (3.4-5.0) gm/dl Globulin 3.3 (2.5-4.0) gm/dl Albumin/Globulin Ratio 1.0 (0.9-2) TSH 2.435 (0.300-4.500) uIu/ml Administered Medications Discontinued Medications Metoprolol Succinate (Metoprolol Succ 25mg Ext Rel Tab) 25 mg PO ONE ONE Stop: 05/26/24 13:47 Last Admin: 05/26/24 14:33 Dose: 25 mg Documented By: [facility] Imaging Data Radiologist's Impression: Head CT 05/26/24 11:05 CT head/brain wo con CLINICAL HISTORY: syncope w/ CHI Technique: Contiguous axial CT images of the head were acquired from the base of the skull to the vertex without intravenous contrast administration. Images were viewed in brain, subdural and bone windows. Automated dose lowering techniques and/or adjustment according to patient size were utilized for this exam. Comparison: None available at the time of this dictation. Findings: Areas of decreased attenuation are present in the periventricular and subcortical white matter bilaterally consistent with small vessel ischemic disease. Generalized cerebral volume loss with commensurate enlargement of the ventricles, sulci, and cisterns is also present. Bilateral encephalomalacia is again seen. Imaged portions of the paranasal sinuses and mastoid air cells are clear. The orbits appear normal. There are no acute fractures of the calvaria. Scalp swelling is seen in the right posterior calvarium. Impression: No acute intracranial hemorrhage or skull fractures. Scalp swelling is seen in the right posterior calvarium. ACT 112: Negative or not required by law. Electronically signed by: Shane Moser M.D. 05/26/2024 11:[address] 05/26/24 11:15 CT cervical spine wo con CLINICAL HISTORY: fall TECHNIQUE: Multidetector row helical CT of the cervical spine was performed without administration of intravenous contrast. Coronal and sagittal reformations were obtained. Automated dose lowering techniques and/or adjustment according to patient size were utilized for this exam. Comparison: None available at the time of this dictation. FINDINGS: No acute fractures or subluxations are identified. Degenerative changes are seen in the visualized spine. The alignment is normal. Soft tissues are unremarkable. IMPRESSION: Degenerative changes without evidence of acute bony injury. ACT 112: Negative or not required by law. Electronically signed by: Shane Moser M.D. 05/26/2024 12:00 PM Discharge Plan Visit Data Chief Complaint: Trauma ED Provider: Elijah Lane Discharge Problem: Syncope, History of heart failure, CHI (closed head injury) Discharge Problem: Syncope Qualifiers: Syncope type: unspecified Qualified Code(s): R55 - Syncope and collapse CHI (closed head injury) Qualifiers: Encounter type: initial encounter Qualified Code(s): S09.90XA - Unspecified injury of head, initial encounter
[2024-05-26 11:43] LABS: Basophils # (auto) 0.03 K/uL (0.00-0.20); Basophils % (auto) 0.7 %; Eosinophils # (auto) 0.13 K/uL (0.00-0.50); Hematocrit (blood only) 42.7 % (37.0-47.0); Hemoglobin 15.1 g/dl (12.0-16.0); Immature Granulocytes # (auto) 0.02 K/uL (0.01-0.20); Immature Granulocytes % (auto) 0.5 %; Lymphocytes % (auto) 36.5 %; Mean Corpuscular Hgb Conc 35.4 g/dL (32.0-36.0); Mean Corpuscular Volume 101.9 fL (80.0-100.0); Mean Platelet Volume 9.2 fL (9.4-12.4); Monocytes # (auto) 0.77 K/uL (0.11-0.59); Monocytes % (auto) 17.6 %; Neutrophils # (auto) 1.83 K/uL (1.40-6.50); Neutrophils % (auto) 41.7 %; Platelet Count 203 K/uL (130-400); RDW Coefficient of Variation 13.1 % (11.5-14.5); RDW Standard Deviation 48.9 fL (36.4-46.3); Red Blood Count 4.19 M/uL (4.20-5.40); White Blood Count 4.38 K/ul (4.8-10.8)
--- NOTE | 2024-05-26 11:58 | CT Scan Report ---
CT head/brain wo con CLINICAL HISTORY: syncope w/ CHI Technique: Contiguous axial CT images of the head were acquired from the base of the skull to the zane suman without intravenous contrast administration. Images were viewed in brain, subdural and bone [facility]. Automated dose lowering techniques and/or adjustment according to patient size were utilized for this exam. Comparison: None available at the time of this dictation. Findings: Areas of decreased attenuation are present in the periventricular and subcortical white matter bilate rally consistent with small vessel ischemic disease. Generalized cerebral volume loss with commensura te enlargement of the ventricles, sulci, and cisterns is also present. Bilateral encephalomalacia is again seen. Imaged portions of the paranasal sinuses and mastoid air cells are clear. The orbits appear normal. There are no acute fractures of the calvaria. Scalp swelling is seen in the right posterior calvarium . Impression: No acute intracranial hemorrhage or skull fractures. Scalp swelling is seen in the right posterior ca lvarium. ACT 112: Negative or not required by law. Electronically signed by: Shane Moser M.D. 05/26/2024 11:56 AM
[2024-05-26 11:59] LABS: Albumin Level 3.2 gm/dl (3.4-5.0); BUN Creatinine Ratio 20.8 (10-20); Bilirubin,Total 1.1 mg/dl (0.2-1.0); Calcium 9.7 mg/dl (8.6-10.3); Creatinine Clr Calc Pharmacy 49.2 ml/min; Globulin 3.3 gm/dl (2.5-4.0); Magnesium 1.8 mg/dl (1.7-2.4); Potassium 3.5 mmol/L (3.5-5.1); Total Protein 6.5 gm/dl (6.0-8.3)
--- NOTE | 2024-05-26 12:01 | CT Scan Report ---
CT cervical spine wo con CLINICAL HISTORY: fall TECHNIQUE: Multidetector row helical CT of the cervical spine was performed without administration of intravenous contrast. Coronal and sagittal reformations were obtained. Automated dose lowering techn iques and/or adjustment according to patient size were utilized for this exam. Comparison: None available at the time of this dictation. FINDINGS: No acute fractures or subluxations are identified. Degenerative changes are seen in the visualized sp ine. The alignment is normal. Soft tissues are unremarkable. IMPRESSION: Degenerative changes without evidence of acute bony injury. ACT 112: Negative or not required by law. Electronically signed by: Shane Moser M.D. 05/26/2024 12:00 PM
[2024-05-26 12:04] LABS: Troponin I High Sensitivity 18.8 pg/ml (0-14)
[2024-05-26 12:13] LABS: Thyroid Stimulating Hormone 2.435 uIu/ml (0.300-4.500)
[2024-05-26 12:14] LABS: INR 1.2 (0.9-1.1); Partial Thromboplastin Ratio 1.1; Partial Thromboplastin Time 29 Seconds (21-31)
--- NOTE | 2024-05-26 12:45 | History & Physical Report ---
Date of Service May 26, 2024 Assessment & Plan (1) Syncope: Plan: Syncope Did have a prodrome of a warm feeling prior to passing out, tried to push through this while cooking had at least 30 seconds of feeling warm and flushed before she passed out. Did feel dehydrated this morning, had not yet drink water like she usually does. Takes her diuretics midday and took no medicines this morning. Blood pressure is normally approximately 130 systolic. Does not generally get orthostatic symptoms No prior history of syncope. No recent illnesses. No leukocytosis. Creatinine is at baseline, slightly contrast - CT-H without acute intracranial findings, Swelling is noted - No palpitations, chest pain, N/V, or illness preceding her syncope - Loop recorder no longer functioning Dx includes vasovagal, orthostatic, cardiogenic. Prodrome is less consistent with cardiogenic Normotensive, pulse regular on admission. EKG with left bundle, troponin is minimally elevated and trended. Repeat echo pending Metoprolol, losartan continued. Spironolactone held pending BP trend, if no orthostasis is observed and then can resume this. BSG 119 on admission. Episode was with prodrome but came on fairly rapidly and was without sweating or other symptoms to suggest hypoglycemia. Patient is on empagliflozin for heart failure, no history of diabetes Orthostatics pending Given fall with scalp hematoma on Eliquis additionally load with Plavix and route recommend overnight observation (2) HFrEF (heart failure with reduced ejection fraction): Plan: HFrEF EF previously 20-25%, improved 03/2024 to 35% Negative Imani scan for ischemia 02/2024 Follows with cardiology for heart failure class I2 symptoms with dry weight of 199 pounds per note review Patient was started on Eliquis for progressive left DVT, Plavix was held at that time Continue metoprolol/spironolactone/Jardiance. Continued on losartan, has deferred Entresto in the past Appears near euvolemic, to slightly volume contracted clinically. Repeat troponin ordered No chest pain or chest pressure at any point (3) H/O: CVA (cerebrovascular accident): Plan: History of CVA With multiple TIAs Plavix was held when patient was switched to DOAC for which 1 dose/morning dose was held due to her injury and will be resumed tonight. No ongoing bleeding at time of evaluation no intracranial bleeding on CT Patient reports some poor vascular response to cold in her right upper extremity, otherwise no strength or sensory deficits residual from her prior stroke and does not have any strokelike deficits on admission Plan DVT prophylaxis: Patient is anticoagulated CODE STATUS: Full code Disposition: PCU post trauma and for monitoring of syncope Diet: Heart healthy History of Present Illness Primary Care Provider: Asif Vasquez Samantha Whitt is a 83-year-old female with a past medical history of heart failure with reduced ejection fraction, CVA, hyperparathyroidism, on Eliquis/Plavix who was cooking when she had a flushed feeling and then syncopized. She did strike her head and is on Eliquis. Patient was called in via EMS as possible STEMI due to underlying left bundle branch block and received 4 aspirin and route. On review left bundle has been present on prior EKGs. She is recommended for evaluation of sudden syncope "If I had bene a little smarter I don't htink Id be here." She notes she has not taken her morning medications, and usually takes her diuretics at noon but had been very very thirsty this morning and felt deyhydrated. She reports she normally comes downstairs and weights herself in the morning and then drinks ice water with her breakfast and then takes her morning medications. Instead of doing that like usual she came downstairs and was working on cooking in a [employer]. She was focusing on her cooking and felt her self getting more and more tired while standing and trying to finish cutting eyes out of the potatoes when she started getting warm, flushed, an da little lightheaded and then all of a sudden 'last thing I remember is feeling warm and flush' and then woke up laying on the floor with a lump on her head. She has not passed out before, did have some episodes she thought was panic but was told 'her heart wasn't working completely right' and she had HRrEF. EF was improving on her medicines on the last check. Had started torsemide, empagliflozin at that time, and was swithced to Toprol-XL from tartrate. Has a non-functioning loop recorder from many years ago (~2018) to evaluate stroke hx. Did not show any afib or irregularities at the time. CVA in 2010 with no resisidual strength/sensory deficits, but does notice some circulation/vascular changes with responsiveness when cold or using the comptuer on the RIGHT side. Medical History: Reviewed Medications: Reviewed Surgical History: Reviewed Family history: Reviewed Allergies: Reviewed Social History: No tobacco/etoh Code Status: Full Code Allergies Allergy/AdvReac Type Severity Reaction Status Date / Time Penicillins Allergy Severe ANAPHYLAXIS Verified 04/23/24 12:22 procaine [From Novocain] Allergy Verified 04/23/24 12:22 Home Medications Medication Instructions Recorded Confirmed Type clopidogrel 75 mg tablet 75 mg PO DAILY 07/09/19 04/23/24 History losartan 50 mg tablet 50 mg PO DAILY #30 tabs 07/09/19 04/23/24 History niacin 500 mg tablet,extended 500 mg PO BID 03/27/20 04/23/24 History release omega-3 fatty acids 1,000 mg 1,000 mg PO DAILY 03/05/21 04/23/24 History capsule (Fish Oil Concentrate) vitamin E (dl, acetate) 45 mg (100 45 mg PO DAILY 02/03/24 04/23/24 History unit) capsule metoprolol succinate 25 mg 25 mg PO DAILY #90 tabs 02/18/24 04/23/24 Rx tablet,extended release 24 hr (Toprol XL) cholecalciferol (vitamin D3) 25 1,000 unit PO DAILY 02/25/24 04/23/24 History mcg (1,000 unit) tablet empagliflozin 10 mg tablet 10 mg PO DAILY #30 tabs 02/25/24 04/23/24 Rx torsemide 20 mg tablet 40 mg PO DAILY 02/25/24 04/23/24 History spironolactone 25 mg tablet 12.5 mg (1/2 x 25 mg) PO DAILY #45 03/21/24 04/23/24 Rx tabs apixaban 5 mg tablet (Eliquis) 5 mg PO BID #60 tabs 04/23/24 04/23/24 Rx Past Med/Surg History Problem List (Updated 05/26/24 @ 13:18 by Senthil Dominique MD) Syncope Left knee DJD Trichilemmal cyst Dyspnea on effort HFrEF (heart failure with reduced ejection fraction) Osteoarthritis PVD (peripheral vascular disease) Chronic diastolic heart failure Scalp cyst Hypertension Chronic venous insufficiency Tonsillolith Impacted cerumen of both ears Otalgia, left ear Sensorineural hearing loss (SNHL) of both ears H/O TIA (transient ischemic attack) and stroke H/O: CVA (cerebrovascular accident) TIA (transient ischemic attack) Degenerative arthritis of knee, bilateral Ischemic embolic stroke (Acute) Other hyperlipidemia (Acute) Primary hyperparathyroidism (Acute) Medical History Hypercholesterolemia Transient cerebral ischemia History of stroke Cerebral artery occlusion Anaphylaxis Arthritis H/O neoplasm of uncertain behavior of uterus Surgical History History of surgery H/O varicose vein ligation H/O rectocele repair History of dilation and curettage History of appendectomy H/O removal of cyst H/O total hysterectomy Family History Father Hypertension Stroke Heart disease Mother Alzheimer disease Other No family history of adverse response to anesthesia No family history of bleeding disorder Thyroid disorder Denies family history of Ovarian cancer Breast cancer Colorectal cancer Social History Smoking Status: Unknown if ever smoked Do You Dip or Chew Tobacco: No; Hx Alcohol Use: No Hx Substance Use: No Preferred Language: Kazakh marital status: Current Living Situation: Spouse current occupational status: retired How many Children do You have: 4 Feels Safe at Home: Yes Dental Care, Regularly: Yes Physical Exam Physical Exam: General: A&Ox3. NAD. Cooperative. HEENT: Posterior. Scalp with small hematoma/soft tissue swelling without open laceration. Vision and hearing grossly intact. Pupils equal and reactive to light. Pulm: CTAB A&P. -wheezes, -rales, -rhonchi. Symmetrical chest rise. No increased work of breathing. No respiratory distress. Cardiac: RRR, soft SM. Radial pulses intact and symmetrical. No JVD is present Abdominal: Nontender, nondistended, soft. BS present. Extremities: Warm, dry. Trace ankle edema Results & Data Results & Data Vital Signs (Past 12 Hours) Vital Signs Temp Pulse Resp BP Pulse Ox O2 Del Method 05/26/24 11:26 68 05/26/24 11:05 99 Room Air 05/26/24 11:05 36.6 C 58 L 20 132/78 100 Room Air 05/26/24 11:05 60 20 99 Room Air 05/26/24 10:49 100 Room Air 05/26/24 10:49 36.6 C 62 20 132/78 99 Room Air PG Care Time/CCT Total # of Minutes Spent Total Time Spent with Patient: Total time spent is greater than 50% in coordination of care (as documented) at patient's floor/unit and/or counseling patient: Coding Level of Care Code 07917 INT INP/OBS CARE 3/75MIN Diagnoses Syncope R55 HFrEF (heart failure with reduced ejection fraction) I50.20 H/O: CVA (cerebrovascular accident) Z86.73
[2024-05-26] MEDS: METOPROLOL SUCC 25MG EXT REL TAB PO ONE (14:33)
[2024-05-26 14:55] LABS: Appearance Urine Clear (Clear); Bilirubin Urine Negative (Negative); Blood Urine Negative (Negative); Color Urine Yellow; Glucose Urine UA 3+ (Negative); Ketones Urine Trace (Negative); Leukocyte Esterase Urine Negative (Negative); Nitrite Urine Negative (Negative); Protein Urine Negative (Negative); Specific Gravity Urine 1.018 (1.000-1.030); Urobilinogen Urine Negative (Negative); pH Urine 5.5 (4.5-7.5)
[2024-05-26] MEDS ORDERED: ONDANSETRON INJ 2 MG/ML 2 ML VIAL IV PRN (15:34)
[2024-05-26] MEDS ORDERED: ACETAMINOPHEN 325 MG TAB PO PRN (15:34)
[2024-05-26] MEDS: APIXABAN 5 MG TABLET PO SCH (20:01)
[2024-05-26] MEDS: LOSARTAN POTASSIUM 50 MG TAB PO SCH (20:02)
[2024-05-26] MEDS: NIACIN 500 MG TAB PO SCH (20:02)
--- OUTSIDE RECORDS SUMMARY | 2024-05-26 22:37 | External Medical Summary | Summary of Care ---
Author Name Unknown Organization [facility] Address [address] [facility] [place] [address] Phone [phone] Care Team Providers Care Wool Brusher Name Role Phone Asif Vasquez PA-C Primary Care Provide r Reason for Visit * Reason Comments NEW PATIENT * Evaluate & Treat - Unlimited Visits (Within 10 days (routine)) - Closed Specialty Diagnoses / Procedures Referred By Eliel hahn Referred To Contact Endocrinology/Metabolism / Endocrinology Diagnoses Hyperparathyroidism, unspecified (HCC) Asif Vasquez PA-C [address] [place] [id number] Referral ID Status Reason Start Date Expiration Date V isits Requested Visits Authorized [id number] Closed Specialty Services Required 08/29/[phone] Encounter Details Date Type Department Care Team (Latest Contact Info) Description 05/12/2024 1:00 PM EDT Office Visit Endocrinology [address] [place] [phone] Sriram Benavides MD [address] [place] [address] Primary hyperparathyroidism (HCC)*; Hypercalcemia; Hypercalciuria; Osteopenia of necks of both femurs Allergies Active Allergy Reactions Criticality Noted Date Comments Novocain 08/21/2009 Hypotensive Penicillins 08/21/2009 Anaphylaxis documented as of this encounter (statuses as of 05/12/2024) Medications Medication Sig Dispensed Refills Start Date End Date Status OMEGA-3 1000 MG PO CAPS 2 with supper 0 08/21/2009 Active NIACIN ER (ANTIHYPERLIPIDEMI C) 500 MG PO TBCR TAKE 1 TABLET TWICE DAILY 3 04/13/2014 Active losartan (COZAAR) 50 MG Tablet Take 1 Tablet by mouth in the morning. Active Vitamin D3 25 MCG (1000 UT) Oral Capsule Take 1 Capsule by mouth every morning. Active Vitamin E 1000 UNIT Oral Capsule Take 1 Capsule by mouth in the morning. Active Eliquis 5 MG Oral Tablet Take 1 Tablet by mouth in the morning and 1 Tablet before bedtime. 04/28/2024 Active Metoprolol Succinate ER 25 MG Oral Tablet Extended Release 24 Hour (toPROL XL) Take 1 Tablet by mouth in the morning. 02/23/2024 Active Cyanocobalamin 1000 MCG Oral Tablet (Cyanocobalamin) Take 1 Tablet by mouth in the morning. 05/04/2020 Active Torsemide 20 MG Oral Tablet (Demadex) Take 2 Tablets by mouth in the morning. 01/14/2024 Active Spironolactone 25 MG Oral Tablet (Aldactone) Take 0.5 Tablets by mouth daily at noon. 03/22/2024 Active Jardiance 10 MG Oral Tablet Take 1 Tablet by mouth in the morning. 04/29/2024 Active CENTRUM SILVER ULTRA WOMENS PO TABS one daily 0 08/21/2009 05/12/2024 Discontinued( Patient preference/di scontinuation ) GLUCOSAMINE CHONDR 1500 COMPLX PO CAPS daily 0 08/21/2009 05/12/2024 Discontinued( Patient preference/di scontinuation ) FLAXSEED (LINSEED) 1000 MG PO CAPS daily 0 08/21/2009 05/12/2024 Discontin ued( Discharged) MELOXICAM 15 MG PO TABS TAKE 1 TABLET BY MOUTH DAILY WITH FOOD 1 05/02/2014 05/12/2024 Discontinued( Discharged) METOPROLOL TARTRATE 25 MG PO TABS TAKE 1/2 TABLET daily 3 06/02/2014 05/12/2024 Discontinued( Discharged) KLOR-CON 10 10 MEQ TBCR Take 10 mEq by mouth daily. 3 01/22/2016 05/12/2024 Discontinued( Discharged) furosemide (LASIX) 20 MG Tablet Take 20 mg by mouth 2 times a day. 05/12/2024 Discontinued( Discharged) clopidogrel (PLAVIX) 75 MG Tablet Take 75 mg by mouth daily. 05/12/2024 Discontinued( Patient preference/di scontinuation ) documented as of this encounter (statuses as of 05/12/2024) Active Problems Problem Noted Date Diagnosed Date Cerebrovascular disease, arteriosclerotic, post- stroke 08/21/2009 documented as of this encounter (statuses as of 05/12/2024) Social History Tobacco Use Types Packs/Day Years Used Date Smoking Tobacco: Never Smokeless Tobacco: Never Tobacco Cessation:Counseling Given: Not Answered Alcohol Use Standard Drinks/Week Comments No 0 (1 standard drink = 0.6 oz pur e alcohol) Utilities Answer Date Recorded Do you have trouble paying y our heating, water, or electric bill? (Adult - for ages 18 years and over) Not on file 01/20/2024 Is your family able to pay t he heat, water, or electric bill? (Household - for ages 0-17 years) Not on file 01/20/2024 Does your family have access to good internet? (Household - for ages 0-17 years) Not on file 01/20/2024 Social Connections Answer Date Recorded How often do you feel lonely or isolated from those around you? (Adult - for ages 18 years and over) Not on file 01/20/2024 Sex and Gender Information Value Date Recorded Sex Assigned at Not on file Gender Identity Not on file Sexual Orientation Not on file documented as of this encounter Last Filed Vital Signs Vital Sign Reading Time Taken Comments Blood Pressure 129/72 05/12/2024 12:59 PM EDT Pulse 73 05/12/2024 12:59 PM EDT Temperature 36.4 C (97.5 F) 05/12/2024 12:59 PM E DT Respiratory Rate - - Oxygen Saturation - - Inhaled Oxygen Concentration - - Weight 90.7 kg (200 lb) 05/12/2024 12:59 PM EDT Height 157.5 cm (5' 2") 05/12/2024 12:59 PM EDT Body Mass Index 36.58 05/12/2024 12:59 PM EDT documented in this encounter Patient Instructions * Patient Instructions* rSiram Benavides MD - 05/12/2024 1:49 PM EDT Can have 3 servings of calcium daily Take vit D3 1000 IU daily Take strict fall precautions Let me know, whether you want o pursue surgery or oral treatment for your bones FU in 6 month documented in this encounter Progress Notes * Sriram Benavides MD - 05/12/2024 12:49 PM EDT Images from the original note were not included. Referring provider: Asif Vasquez PA-C Reason for referral/chief complaint: Initial visit to establish care for hyperparathyroidism Date of service: 05/12/2024 History of present illness: Samantha is a pleasant 83-year-old female who is referred to Endocrinologyfor evaluation of hyperparathyroidism. Accompanied with: Daughter. Daughter with history of primary hyperparathyroidism and parathyroidectomy with indication of osteoporosis. Per daughter, patient has mildly elevated calcium for almost 25 years. Samantha herself has no acute complaints today. Her energy levels are fair for her age. She sleeps well. Denies mood problems. Has mild cognitive issues which she attributes to strokes in past. Has mild constipation. Otherwise denies abdominal pain, history of pancreatitis or history of peptic ulcer disease. Reports polyuria but attributes this to being on diuretics. No history of kidney stones. No hematuria Reports arthralgias involving back, hips and knees. No history of fragility fractures. She has started getting glucocorticoid injections. No history of primary or metastatic malignancy. No History of sarcoidosis. She does not take any calcium supplements. Dietary calcium intake is not very high. Takes vitamin D3 1000 IU daily. Noted to be on torsemide 40 mg daily. She did not held torsemide prior to 24 hour urine collection.No use of thiazides or lithium. Outside labs: Labs 04/19/2024 24 hour urine calcium: 310 (35-200 mg/24 hours), 24 hour urine creatinine 0.97 g per 24 hours, 24 hour urine volume: 2.5 L Labs 08/21/2023 PTH 43 (16-77), calcium 9.7 with albumin of 3.1, vitamin-D 49, magnesium 1.7, GFR 73 Labs on 04/2023 Calcium 10.4 with albumin of 3.5, ionized calcium 5.7 (h), PTH 64 (16-77) Labs on 12/2022 PTH 64 (16-77), calcium 9.8 (8.6-10.4) Labs on 11/2021 PTH 74, calcium 10.0, ionized calcium 5.6 (4.8-5.6) Labs on 08/2021: PTH 67 (14-64) , calcium 9.9 (8.6-10.4) Relevant imaging: DEXA scan 05/05/2024 Renal ultrasound 04/16/2024 Other imagin10/09/2023 09/18/2023 Past medical history: CVA Hypercalcemia No past surgical history on file. Family history: Daughter with history of primary hyperparathyroidism and parathyroidectomy Social History Socioeconomic History Marital status: Spouse name: Not on file Number of children: Not on file Years of education: Not on file Highest education level: Not on file Occupational History Not on file Tobacco Use Smoking status: Never Smokeless tobacco: Never Substance and Sexual Activity Alcohol use: No Drug use: Not on file Sexual activity: Not on file Other Topics Concern Not on file Social History Narrative Not on file Social Determinants of Health Financial Resource Strain: Not on file Food Insecurity: Not on file Transportation Needs: Not on file Social Connections: Unknown (01/20/2024) Social Connections How often do you feel lonely or isolated from those around you? (Adult - for ages 18 years and over): Not on file Housing Stability: Not on file Current Outpatient Medications Medication Sig Dispense Refill Cyanocobalamin 1000 MCG Oral Tablet (Cyanocobalamin) Take 1 Tablet by mouth in the morning. Eliquis 5 MG Oral Tablet Take 1 Tablet by mouth in the morning and 1 Tablet before bedtime. Jardiance 10 MG Oral Tablet Take 1 Tablet by mouth in the morning. losartan (COZAAR) 50 MG Tablet Take 1 Tablet by mouth in the morning. Metoprolol Succinate ER 25 MG Oral Tablet Extended Release 24 Hour (toPROL XL) Take 1 Tablet by mouth in the morning. NIACIN ER (ANTIHYPERLIPIDEMIC) 500 MG PO TBCR TAKE 1 TABLET TWICE DAILY 3 OMEGA-3 1000 MG PO CAPS 2 with supper 0 Spironolactone 25 MG Oral Tablet (Aldactone) Take 0.5 Tablets by mouth daily at noon. Torsemide 20 MG Oral Tablet (Demadex) Take 2 Tablets by mouth in the morning. Vitamin D3 25 MCG (1000 UT) Oral Capsule Take 1 Capsule by mouth every morning. Vitamin E 1000 UNIT Oral Capsule Take 1 Capsule by mouth in the morning. No current facility-administered medications for this visit. Review of patient's allergies indicates: Allergen Reactions Novocain Hypotensive Penicillins Anaphylaxis Review of systems: As per HPI. Others reviewed and noted to be negative Physical examination: Vitals: 05/12/24 1259 Temp: 36.4 C (97.5 F) Pulse: 73 BP: 129/72 BMI: 36.57 Constitutional: Appears well and appropriate for her age. Eyes: No apparent Periorbital puffiness. Neck: No visible large goiter. Respiratory: Patient is able to speak in complete sentences. Cardiovascular: Mild lower extremity edema noted Musculoskeletal: Intact range of motion at upper extremities Neuro: AAO X3. Recent and remote memory intact. Psych: Patient makes goodeye contact. Speech noted to be normal. 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 No HCTZ/lithium on board. Hypercalcemia symptoms: Cognitive issues (? Related to stroke), arthralgias. Other etiologies of hypercalcemia including HHM (humoral hypercalcemia of malignancy), hypercalcemia from lymphoproliferative disorders, multiple myeloma, vitamin-D intoxication, milk alkali syndromeare unlikely due to fact that patient has PTH mediated hypercalcemia rather than non PTH mediated hy percalcemia. Daughter with history of primary hyperparathyroidism and parathyroidectomy. Suspicion for a MEN related hyperparathyroidism is low Plan: Etiology, pathophysiology, diagnostic and therapeutic options for management of primary hyperparathyroidism has been discussed with patient. Criteria for surgical management of hyperparathyroidism has been discussed with patient and with daughter in detail Criteria: 1. Age less than 50: No 2. GFR less than 60: No 3. History of nephrolithiasis: No or evidence of nephrocalcinosis or nephrolithiasis on abdominal imaging: No. Recent kidney ultrasound reviewed 4. 24 hour urine calcium more than 400 mg per day: No. Recent 24 hour urine calcium was 310. Results should be interpreted with caution as patient was on torsemide which has calciuric effect. 5. History of fragility fractures: No. 6. Evidence of osteoporosis on DEXA scan: No. I have reviewed her DEXA scan. Forearm bone density was not included in study. FRAX score for major osteoporotic fracture and for hip fracture is noted to be high. 7. Corrected serum calcium more than 1 mg/dL above upper limit of normal: No Based on above, patient has not clearly met criteria for surgical management. She had parathyroid sestamibi scan in past which was non localizing. Following 2 options have been discussed with patient and with daughter in detail -nonsurgical approach with close monitoring of calcium, kidney function, urinary calcium + treatment of low bone mass with oral alendronate. -surgical approach with parathyroidectomy. Patient will update me in next few weeks about her decision. If she decides to pursue with surgicalapproach (indication: Advanced osteopenia approaching osteoporosis), I will order [address] neck and based on results, will refer to ENT to discuss surgical management. If she decides to pursue conservative approach, I will start her on oral alendronate. Will check calcium, renal function, PTH, urine calcium once a year. Will repeat bone density in 2 years. Meanwhile, I have advised patient to keep herself well hydrated. She has been advised to continue taking vitamin-D 1000 IU daily. She has been advised to take calcium 1000 mg from dietary sources only. Advised not to take any [id number] calcium supplements. Follow-up: 6 months or sooner if needed This chart was completed in part utilizing [employer] Speech Voice Recognition Software. Grammatical errors, random word insertions, pronoun errors, and incomplete sentences are an occasional consequence of this system due to software limitations, ambient noise, and hardware issues. Any formal questions or concerns about the content, text, or information contained within the body of this dictation should be directly addressed to the provider for clarification. Thanks very much for allowing me to assist with this patient's care. Please do not hesitate to contact, in case of any questions or concerns. Sriram Benavides MD Endocrinology Physician [address], [place] [address] CC:Asif Vasquez PA-C I spent a total of Greater than 55 mins (exact time 60 mins) on the date of service in preparation,delivery, and documentation of the care provided to Samantha Whitt excluding any time spent in the performance of separately billed services or time spent by another provider/QHP. documented in this encounter Nursing Notes * Celina Lopez CMA - 05/12/2024 12:34 PM EDT Patient was instructed to not get up on the exam table/exam chair until directed and assisted by their provider; patient is to remain seated in the chair/ wheelchair/ exam table/ exam chair for fall prevention and safety reasons. Patient is aware to have assistance to step down off exam table/exam chair with personnel. Patient voiced full comprehension of instructions. Celina Lopez CMA Adult Endocrinology documented in this encounter Plan of Treatment Upcoming Encounters Date Type Department Care Team (Late st Contact Info) Description 12/10/2024 11:20 AM EDT Office Visit Endocrinology [address] [place] [phone] Sriram Benavides MD [address] [facility] [place] [address] Health Maintenance Due Date Last Done Comments DXA Scan 1940 Depression Screening 1952 DTap/Tdap Vaccines (1 - Tdap) 10[birth year]29/1959 COVID-19 Vaccine ( season) 2024 10/12/2020, 09/14/2020 Influenza Vaccine (FLU shot) (#1) 2024 06/10/2023, 06/10/2023, 05/14/2022, Additional history exists Pneumococcal Vaccine: 65+ Years Completed 06/04/2019, 01/28/2018, 06/23/2014, Additional history exists Zoster Vaccines Completed 07/12/2020, 04/2020, 09/08/2009 HPV (Gardasil) Vaccine Aged Out No lo nger eligible based on patient's age to complete this topic Hepatitis B Vaccine Aged Out No longe r eligible based on patient's age to complete this topic MENINGOCOCCAL (MENACTRA/MENVEO) Aged Out No longer eligible based on patient's age to complete this topic documented as of this encounter Medical Devices Not on filedocumented as of this encounter Visit Diagnoses Diagnosis Primary hyperparathyroidism (HCC)- Primary Primary hyperparathyroidism Hypercalcemia Hypercalciuria Unspecified disorders of calcium metabolism Osteopenia of necks of both femurs documented in this encounter Care Teams Wool Brusher Relationship Specialty Start Date End Date Asif Vasquez PA-C PCP - General Physician Geographic Information System Analyst 10/27/17 documented as of this encounter
[2024-05-27] MEDS: MULTIVITAMIN TAB PO SCH (08:00)
[2024-05-27] MEDS: CHOLECALCIFEROL 25 MCG (1000 UNITS) TAB PO SCH (08:01)
[2024-05-27 09:55] LABS: Hematocrit (blood only) 39.4 % (37.0-47.0); Hemoglobin 13.1 g/dl (12.0-16.0); Mean Corpuscular Hemoglobin 34.4 pg (25.0-34.0); Mean Corpuscular Hgb Conc 33.2 g/dL (32.0-36.0); Mean Corpuscular Volume 103.4 fL (80.0-100.0); Platelet Count 164 K/uL (130-400); RDW Coefficient of Variation 13.2 % (11.5-14.5); RDW Standard Deviation 50.3 fL (36.4-46.3); Red Blood Count 3.81 M/uL (4.20-5.40); White Blood Count 5.43 K/ul (4.8-10.8)
[2024-05-27 11:04] VITALS: PULSE 66; O2SAT 93
[2024-05-27] MEDS: EMPAGLIFLOZIN 10 MG TAB PO SCH (12:00)
[2024-05-27] MEDS: METOPROLOL SUCC 25MG EXT REL TAB PO SCH (12:00)
[2024-05-27] MEDS: SPIRONOLACTONE 12.5 MG TAB PO SCH (12:00)
[2024-05-27 12:17] LABS: iSTAT Creatinine 1.1 mg/dl (0.6-1.3); iSTAT Hemoglobin 14.6 g/dl (12.0-16.0); iSTAT Ionized Calcium 1.29 mmol/l (1.12-1.32); iSTAT Potassium 3.3 mmol/L (3.3-5.0)
[2024-05-27 15:22] VITALS: BP 117/69; RESP 14; TEMP 98.1
--- NOTE | 2024-05-27 17:57 | Discharge Summary ---
Discharge Summary Date of Service May 27, 2024 Principal Dx & Hospital Course #1 = Principal Diagnosis (1) Syncope: Syncopal episode at home - Did have a prodrome of a warm feeling prior to passing out, tried to push through this while cooking had at least 30 seconds of feeling warm and flushed before she passed out. Did feel dehydrated this morning, had not yet drink water like she usually does. Takes her diuretics midday and took no medicines this morning. Blood pressure was normal on admission. Does not generally get orthostatic symptoms - No prior history of syncope. No recent illnesses. No leukocytosis. Creatinine is at baseline. No palpitations, chest pain, N/V, or illness preceding her syncope - CT-H without acute intracranial findings, scalp Swelling is noted - C-spine CT unremarkable - Loop recorder no longer functioning - Normotensive, pulse regular on admission. EKG with left bundle, troponin is minimally elevated at 18.8, downtrended - suspect secondary to demand ischemia - BSG 119 on admission. Episode was with prodrome but came on fairly rapidly and was without sweating or other symptoms to suggest hypoglycemia. Patient is on empagliflozin for heart failure, no history of diabetes - Orthostatics WNL - Given fall with scalp hematoma on Eliquis she was recommended for overnight observation - Suspect neurogenic syncope in setting of dehydration. However, given significant cardiac history, patient was discharged with Holter monitor x 14 days, recommend cardio follow up in 2 weeks - Losartan reduced to 25 mg daily (previously on 50 mg daily) (2) HFrEF (heart failure with reduced ejection fraction): HFrEF EF previously 20-25%, improved 03/2024 to 35% Negative Imani scan for ischemia 02/2024 Follows with cardiology for heart failure class I2 symptoms with dry weight of 199 pounds per note review Patient was started on Eliquis for progressive left DVT, Plavix was held at that time Continue metoprolol/spironolactone/Jardiance. Continued on losartan, has deferred Entresto in the past Appears near euvolemic, to slightly volume contracted clinically. No chest pain or chest pressure at any point (3) H/O: CVA (cerebrovascular accident): History of CVA With multiple TIAs No ongoing bleeding at time of evaluation no intracranial bleeding on CT Patient reports some poor vascular response to cold in her right upper extremity, otherwise no strength or sensory deficits residual from her prior stroke and does not have any strokelike deficits on admission Plan DVT prophylaxis: Patient is anticoagulated CODE STATUS: Full code Notes For Next Care Provider Presented after syncopal episode at home. Suspect neurogenic syncope in the setting of dehydration. However, given significant cardiac history, discharged with 14-day Holter monitor and recommend cardiology follow-up in [address] revealed scalp swelling but no skull fracture or intracranial hemorrhage. C-spine CT unremarkable. Medication Changes From Visit Reduced losartan to 25 mg daily (previously was on 50 mg daily) Admission HPI Per Admitting Provider Samantha Whitt is a 83-year-old female with a past medical history of heart failure with reduced ejection fraction, CVA, hyperparathyroidism, on Eliquis/Plavix who was cooking when she had a flushed feeling and then syncopized. She did strike her head and is on Eliquis. Patient was called in via EMS as possible STEMI due to underlying left bundle branch block and received 4 aspirin and route. On review left bundle has been present on prior EKGs. She is recommended for evaluation of sudden syncope "If I had bene a little smarter I don't htink Id be here." She notes she has not taken her morning medications, and usually takes her diuretics at noon but had been very very thirsty this morning and felt deyhydrated. She reports she normally comes downstairs and weights herself in the morning and then drinks ice water with her breakfast and then takes her morning medications. Instead of doing that like usual she came downstairs and was working on cooking in a crockpot. She was focusing on her cooking and felt her self getting more and more tired while standing and trying to finish cutting eyes out of the potatoes when she started getting warm, flushed, an da little lightheaded and then all of a sudden 'last thing I remember is feeling warm and flush' and then woke up laying on the floor with a lump on her head. She has not passed out before, did have some episodes she thought was panic but was told 'her heart wasn't working completely right' and she had HRrEF. EF was improving on her medicines on the last check. Had started torsemide, empagliflozin at that time, and was swithced to Toprol-XL from tartrate. Has a non-functioning loop recorder from many years ago (~2018) to evaluate stroke hx. Did not show any afib or irregularities at the time. CVA in 2011 with no resisidual strength/sensory deficits, but does notice some circulation/vascular changes with responsiveness when cold or using the comptuer on the RIGHT side. Medical History: Reviewed Medications: Reviewed Surgical History: Reviewed Family history: Reviewed Allergies: Reviewed Social History: No tobacco/etoh Code Status: Full Code Admission Exam Per Admitting Provider General: A&Ox3. NAD. Cooperative. HEENT: Posterior. Scalp with small hematoma/soft tissue swelling without open laceration. Vision and hearing grossly intact. Pupils equal and reactive to light. Pulm: CTAB A&P. -wheezes, -rales, -rhonchi. Symmetrical chest rise. No increased work of breathing. No respiratory distress. Cardiac: RRR, soft SM. Radial pulses intact and symmetrical. No JVD is present Abdominal: Nontender, nondistended, soft. BS present. Extremities: Warm, dry. Trace ankle edema Discharge Exam General: No acute distress, nondiaphoretic, well-developed, well-nourished. Skin: The skin was without rashes, erythema, edema, or bruising. Cardiac: Regular rate and rhythm. Systolic murmur noted. Pulm: Clear to auscultation bilaterally without wheezes, rales or rhonchi. No respiratory distress. 93% on room air. Abdominal: Soft, nontender, nondistended. Bowel sounds present. Neuro: A&O x3. No focal neurological deficits. Discharge Plan Discharge Items Patient Disposition: Home - Self-Care Reason For Visit: SYNCOPE Discharge Diagnosis: Syncopal episode Activity: Per Instructions section Non-emergency contact: Primary Care Provider Call non-emergency contact if: you have any medication questions and your symptoms worsen Follow-up/Referrals: Kit De La Torre MD [Physician] - 06/17/24 11:00 am (Hospital follow up scheduled with Rene Cooley PA-C on June 17, 2024 at 11:00 am) Asif Vasquez PA-C [Primary Care Provider] - 06/04/24 1:00 pm (Hospital follow up is scheduled with Dr. Gauthier on June 04, 2024 at 1:00 pm) Diet: Heart Healthy Addtl Attending Provider Instructions: Mrs. Whitt, You were admitted to the hospital for observation after passing out (syncopal episode) at home. CT scan of your head showed some scalp swelling where you hit your head, but no skull fracture or bleeding in your head. The CT scan of your cervical spine showed no fractures or subluxations. Your troponin (heart enzyme) was unremarkable. Your urinalysis was unremarkable. All of this to be said, your syncopal episode was likely due to neurogenic syncope in the setting of being dehydrated. However, given your cardiac history, you are being discharged with a 14-day Holter monitor which will record your heart's electrical activity to monitor for arrhythmias (irregular heart rhythms). You can then follow-up with cardiology in about 3 weeks. The only medication change from this hospitalization is reducing your losartan to 25 mg daily (previously on 50 mg daily). If you are able to cut your current tablets in half, that works. If not, I have sent a new prescription for Losartan 25 mg daily to your pharmacy. Follow-up with your PCP in 1-2 weeks. Please return to the hospital if you experience any of the following: Passing out again, pain in your chest/arm/neck/jaw/back/or belly, shortness of breath, severe headache or seizure, blood in your vomit or stools (black or red color), heart palpitations, very fast or very slow heartbeat, weakness in your arm or leg or on one side of the face, trouble speaking or seeing, extreme drowsiness, confusion, or dizziness. It was a pleasure taking care of you while you were in the hospital, Sarah Dale PA-C Pending Studies at Discharge: No Stand-Alone Forms: [facility], Smoking Cessation Medications and DC Order Prescriptions: New losartan 25 mg tablet 25 mg PO DAILY Qty: 30 0RF Continued niacin 500 mg tablet extended release 500 mg PO BID cholecalciferol (vitamin D3) 25 mcg (1,000 unit) tablet 1,000 unit PO QAM omega-3 fatty acids [Fish Oil Concentrate] 1,000 mg capsule 1,000 mg PO PM Eliquis 5 mg tablet 5 mg PO BID Qty: 60 6RF vitamin E (dl, acetate) 45 mg (100 unit) capsule 450 mg PO QAM torsemide 20 mg tablet 40 mg PO .@NOON multivitamin Tablet 1 tab PO QAM spironolactone 25 mg tablet 12.5 mg PO .@NOON metoprolol succinate [Toprol XL] 25 mg tablet extended release 24 hr 25 mg PO .@NOON empagliflozin 10 mg tablet 10 mg PO .@NOON Discontinued losartan 50 mg tablet 50 mg PO PM Qty: 30 Discharge Orders: Discharge Order- CHF (Routine); Ordered 05/27/24 Ordered By: Sarah Dale Admission Data Admit Date/Time: 05/26/24 13:21 Attending Provider: Yousif Trevino Admit Provider: Senthil Dominique Primary Care Provider: Asif Vasquez Other Providers: Senthil Dominique Other Interventions: Discharge Summary Assessment (RN) Last Done: 05/27/24 14:29 Hospital Stay Data Consultations 05/26/24 12:28 ED Decision to Admit Stat Diagnostic Imagining Performed Head CT 05/26/24 11:05 CT head/brain wo con CLINICAL HISTORY: syncope w/ [facility] Technique: Contiguous axial CT images of the head were acquired from the base of the skull to the vertex without intravenous contrast administration. Images were viewed in brain, subdural and bone windows. Automated dose lowering techniques and/or adjustment according to patient size were utilized for this exam. Comparison: None available at the time of this dictation. Findings: Areas of decreased attenuation are present in the periventricular and subcortical white matter bilaterally consistent with small vessel ischemic disease. Generalized cerebral volume loss with commensurate enlargement of the ventricles, sulci, and cisterns is also present. Bilateral encephalomalacia is again seen. Imaged portions of the paranasal sinuses and mastoid air cells are clear. The orbits appear normal. There are no acute fractures of the calvaria. Scalp swelling is seen in the right posterior calvarium. Impression: No acute intracranial hemorrhage or skull fractures. Scalp swelling is seen in the right posterior calvarium. ACT 112: Negative or not required by law. Electronically signed by: Shane Moser M.D. 05/26/2024 11:[address] 05/26/24 11:15 CT cervical spine wo con CLINICAL HISTORY: fall TECHNIQUE: Multidetector row helical CT of the cervical spine was performed without administration of intravenous contrast. Coronal and sagittal reformations were obtained. Automated dose lowering techniques and/or adjustment according to patient size were utilized for this exam. Comparison: None available at the time of this dictation. FINDINGS: No acute fractures or subluxations are identified. Degenerative changes are seen in the visualized spine. The alignment is normal. Soft tissues are unremarkable. IMPRESSION: Degenerative changes without evidence of acute bony injury. ACT 112: Negative or not required by law. Electronically signed by: Shane Moser M.D. 05/26/2024 12:00 PM Pending Results Patient Have Any Pending Studies at Discharge: No Discharge Instructions Given to Patient (Per Discharging Provider) Killian Rudd were admitted to the hospital for observation after passing out (syncopal episode) at home. CT scan of your head showed some scalp swelling where you hit your head, but no skull fracture or bleeding in your head. The CT scan of your cervical spine showed no fractures or subluxations. Your troponin (heart enzyme) was unremarkable. Your urinalysis was unremarkable. All of this to be said, your syncopal episode was likely due to neurogenic syncope in the setting of being dehydrated. However, given your cardiac history, you are being discharged with a 14-day Holter monitor which will record your heart's electrical activity to monitor for arrhythmias (irregular heart rhythms). You can then follow-up with cardiology in about 3 weeks. The only medication change from this hospitalization is reducing your losartan to 25 mg daily (previously on 50 mg daily). If you are able to cut your current tablets in half, that works. If not, I have sent a new prescription for Losartan 25 mg daily to your pharmacy. Follow-up with your PCP in 1-2 weeks. Please return to the hospital if you experience any of the following: Passing out again, pain in your chest/arm/neck/jaw/back/or belly, shortness of breath, severe headache or seizure, blood in your vomit or stools (black or red color), heart palpitations, very fast or very slow heartbeat, weakness in your arm or leg or on one side of the face, trouble speaking or seeing, extreme drowsiness, confusion, or dizziness. It was a pleasure taking care of you while you were in the hospital, Sarah Dale PA-C Total Time Total Time Spent Total Time Spent (In Minutes): Greater than 30 minutes spent completing this discharge process including direct patient care, medication reconciliation, documentation, review of labs and images, and coordination of care. Coding Level of Care Code 08897 INP/OBS DISCH >30 MIN Diagnoses Syncope R55 HFrEF (heart failure with reduced ejection fraction) I50.20 H/O: CVA (cerebrovascular accident) Z86.73
--- NOTE | 2024-05-28 23:40 | Electrocardiogram Report ---
Test Reason : Blood Pressure : */* mmHG Vent. Rate : 62 BPM Atrial Rate : 62 BPM P-R Int : 202 ms QRS Dur : 194 ms QT Int : 496 ms P-R-T Axes : 32 -35 131 degrees QTcB Int : 503 ms Normal sinus rhythm Left axis deviation Left bundle branch block Abnormal ECG When compared with ECG of 26-Jan-2024 16:07, No significant change was found Confirmed by Cabrera Melendrez ([id number]) on 05/28/2024 11:40:07 PM Referred By: Confirmed By: Cabrera Melendrez
== END 2024-05-27 16:28 | disposition home or self-care (01) ==
LOC: ED 11:00 → 2S 11:00 → SUATTDRO 13:21 → 2S 15:51